=== PATIENT | female | born 1960 | race Caucasian/White ===

== ENCOUNTER 2023-08-09 09:42 | Observation (INO) | payer OTHER ==
--- OUTSIDE RECORDS SUMMARY | 2023-08-09 09:46 | XMS REPORT | Continuity of Care Document ---
Author Name Unknown Address [address] [place] [address] [address] [place] [address] [facility] Address [address] [facility]. [address] [place] [address] Care Team Providers Care Voice Over Announcer Name Role Phone CAMILO NUÑEZ Attending Clinician Unavailab FATOU Guardado Attending Clinician Unavailable LAB90 Attending Clinician Unavailable CHIDI OH Attending Clinician Unavailable RYAN CASEY Attending Clinician Unavailable Pillai_A_HOU_DO Attending Clinician Unavailable Zina Tate Attending Clinician Unavailable ZINA TATE D.O. 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 87 ON 9 [id number] 2023 00:00:00 [place] (EPO[place] [id number] 2021 00:00:00 2023 00:00:00 [facility] COMMUNITY PLAN (MEDICAID REPLACEMENT - HMO) [id number] 2021 00:00:00 [facility] BCBS BLUE ADVANTAGE HMO [id number] 2015 00:00:00 Problems Condition Name Condition Details Condition Category Status Onset Date Resolution Date Last Treatment Date Treating Clinician Comments Source HTN (hypertens ion) HTN (hypertens ion) Disease Active 2022-06 00:00: 00 Rosi smith Well adult exam Well adult exam Disease Active 2022-06 00:00: 00 Rosi smith HMG COA reductase inhibitor adverse reaction HMG COA Reductase Inhibitor Adverse Reaction Problem Active 11-25 00:00: 00 [facility] Postmenopa usal bleeding Postmenopa usal Bleeding Problem Active 2021-06 115 00:00: 00 [facility] Mild aortic valve stenosis Mild Aortic Valve Stenosis Problem Active 907 00:00: 00 [facility] Atheroscle rosis of aorta Atheroscle rosis of Aorta Problem Active 16 00:00: 00 [facility] Nodule of lung Nodule of Lung Problem Active 16 00:00: 00 [facility] Asbestosis Asbestosis Problem Active -12 00:00: 00 [facility] Chronic obstructiv e lung disease Chronic Obstructiv e Lung Disease Problem Active 11-26 00:00: 00 [facility] Essential hypertensi on Essential Hypertensi on Problem Active 11-24 00:00: 00 [facility] No known active problems No known active problems Disease [facility] Allergies, Adverse Reactions, Alerts Allergy Name Allergy Type Status Severity Reaction(s) Onset Date Inactive Date Treating Clinician Comments Source Atorvast atin Propensi ty to adverse reaction s Active Other 2022-06 00:00: 00 Rosi smith Atorvast atin Allergy to substanc e Active Myalgias (muscle pain) [facility] NO KNOWN ALLERGIE S Drug Class Active [facility] Social History Social Habit Start Date Stop Date Quantity Comments Source History of tobacco use 2012-10-30 00:00:00 Cigarette Smoker [facility] Exposure to SARS-CoV-2 (event) Not sure [facility] Sexual orientation Leida smiley Stephenie - External Tobacco use and exposure 2023-04-26 00:00:00 2023-04-26 00:00:00 Smokeless tobacco non-user Rosi Casiano - External Alcohol intake 2023-04-26 00:00:00 2023-04-26 00:00:00 Lifetime non-drinker (finding) Rosi Casiano - External History of Social function 2023-04-26 00:00:00 2023-04-26 00:00:00 Rosi Ramires External Tobacco Comment 2015-10-31 00:00:00 2015-10-31 00:00:00 use e cigarettes [facility] Alcohol Comment 2015-10-31 00:00:00 2015-10-31 00:00:00 ocassionally [facility] Sex Assigned At 1960 00:00:00 1960 00:00:00 Rosi Casiano - External Smoking Status Start Date Stop Date Source Former Smoker [facility] Never smoked tobacco Rosi Casiano - External Medications Ordered Medication Name Filled Medication Name Start Date Stop Date Current Medication? Ordering Clinician Indication Dosage Frequency Signature (SIG) Comments Components Source DHA-EPA-Vit smith E (OMEGA-3 COMPLEX OR) 2022-06 09:27: 37 Yes Take by mouth. Rosi smith Cholecalcif yonny (D3 2000 OR) 2022-06 09:27: 37 Yes Take by mouth. Rosi smith Multiple Vitamin (MULTI VITAMIN DAILY OR) 2022-06 09:27: 37 Yes Take by mouth. Rosi smith Multiple Vitamins-Mi nerals (HAIR SKIN AND NAILS FORMULA OR) 2022-06 09:27: 37 Yes Take by mouth. Rosi smith Coenzyme Q10 (Co Q10) 100 MG oral Capsule 2022-06 09:27: 37 Yes Take by mouth. Rosi smith Chlorthalid one 25 MG oral Tablet 2022-06 00:00: 00 Yes [id number] TAKE 1 TABLET BY MOUTH ONCE DAILY DIRECTED FOR 90 DAYS. Rosi smith Levothyroxi ne Sodium 150 MCG oral Tablet 2022-06 00:00: 00 Yes 150ug Take 1 tablet (150 mcg total) by mouth in the morning and 1 tablet (150 mcg total) at noon and 1 tablet (150 mcg total) in the evening. Take before meals. Rosi smith Oseltamivir Phosphate 75 MG oral Capsule 2022-06 00:00: 00 04-26 00:00 :00 No Rosi smith Pseudoeph-B romphen-DM 30-2-10 MG/5ML oral Syrup 2022-06 00:00: 00 04-26 00:00 :00 No TAKE 10 ML BY MOUTH EVERY 4 HOURS NEEDED FOR COUGH AND CONGESTION Rosi smith Losartan Potassium 25 MG oral Tablet 02-10 00:00: 00 Yes 25mg Take 1 tablet (25 mg total) by mouth daily. Rosi smith Chlorthalid one 25 MG oral Tablet 02-02 00:00: 00 04-26 00:00 :00 No TAKE 1 TABLET BY MOUTH ONCE DAILY DIRECTED FOR 90 DAYS Rosi smith iohexol (OMNIPAQUE 350 BULK-100 mL) injection 100 mL 01-26 19:15: 00 01-26 18:31 :00 No 100mL 100 mL, Intravenou s, ONCE, 1 dose, 01/27/20 at 1415, [facility] mg tablet 01-26 00:00: 00 02-06 04:59 :00 No [id number] 25mg Take 2.5 tablets by mouth 2 (two) times daily for 10 days. [facility] valACYclovi r 1 gram tablet 01-26 00:00: 00 02-06 04:59 :00 No [id number] 1g Take 1 tablet by mouth 3 (three) times daily for 10 days. [facility] COPASIL Gel 11-12 00:00: 00 Yes [facility] estradiol (ESTRACE) 0.01 % (0.1 mg/gram) vaginal cream 10-30 00:00: 00 Yes 2g Insert 2 g into vagina weekly. [facility] Diclofenac Sodium (VOLTAREN) 1 % gel 10-29 00:00: 00 Yes Apply to affected area(s) daily. [facility] doxycycline (VIBRA-TABS ) 100 mg tablet 10-28 00:00: 00 Yes 100mg Take 100 mg by mouth 2 (two) times daily. [facility] clindamycin (CLEOCIN T) 1 % lotion 10-28 00:00: 00 Yes Apply to affected area(s) daily. [facility] albuterol sulfate HFA 90 mcg/actuati on aerosol inhaler 1 puff every 4-6 hours as needed for SOB, wheezing, Cough albuterol sulfate HFA 90 mcg/actuati on aerosol inhaler 1 puff every 4-6 hours as needed for SOB, wheezing, Cough No albuterol sulfate HFA 90 mcg/actuat ion aerosol inhaler 1 puff every 4-6 hours as needed for SOB, wheezing, Cough [facility] aspirin 81 mg tablet,lisa yed release Take 1 tablet every day by oral route. aspirin 81 mg tablet,lisa yed release Take 1 tablet every day by oral route. No aspirin 81 mg tablet,del ayed release Take 1 tablet every day by oral route. [facility] atorvastati n 20 mg tablet Take 1 tablet every day by oral route. atorvastati n 20 mg tablet Take 1 tablet every day by oral route. No atorvastat in 20 mg tablet Take 1 tablet every day by oral route. [facility] chlorthalid one 25 mg tablet Take 1 tablet every day by oral route. chlorthalid one 25 mg tablet Take 1 tablet every day by oral route. No chlorthali done 25 mg tablet Take 1 tablet every day by oral route. [facility] losartan 25 mg tablet Take 1 tablet every day by oral route. losartan 25 mg tablet Take 1 tablet every day by oral route. No losartan 25 mg tablet Take 1 tablet every day by oral route. [facility] albuterol sulfate HFA 90 mcg/actuati on aerosol inhaler 1 puff every 4-6 hours as needed for SOB, wheezing, Cough albuterol sulfate HFA 90 mcg/actuati on aerosol inhaler 1 puff every 4-6 hours as needed for SOB, wheezing, Cough No albuterol sulfate HFA 90 mcg/actuat ion aerosol inhaler 1 puff every 4-6 hours as needed for SOB, wheezing, Cough [facility] chlorthalid one 25 mg tablet Take 1 tablet every day by oral route. chlorthalid one 25 mg tablet Take 1 tablet every day by oral route. No chlorthali done 25 mg tablet Take 1 tablet every day by oral route. [facility] losartan 25 mg tablet TAKE 1 TABLET BY MOUTH ONCE DAILY losartan 25 mg tablet TAKE 1 TABLET BY MOUTH ONCE DAILY No losartan 25 mg tablet TAKE 1 TABLET BY MOUTH ONCE DAILY [facility] Ozempic 0.25 mg or 0.5 mg (2 mg/1.5 mL) subcutaneou s pen injector Inject 0.5 mg every week by subcutaneou s route before meals for 90 days. Ozempic 0.25 mg or 0.5 mg (2 mg/1.5 mL) subcutaneou s pen injector Inject 0.5 mg every week by subcutaneou s route before meals for 90 days. No .5mg Q1W Ozempic 0.25 mg or 0.5 mg (2 mg/1.5 mL) subcutaneo us pen injector Inject 0.5 mg every week by subcutaneo us route before meals for 90 days. [facility] albuterol sulfate HFA 90 mcg/actuati on aerosol inhaler 1 puff every 4-6 hours as needed for SOB, wheezing, Cough albuterol sulfate HFA 90 mcg/actuati on aerosol inhaler 1 puff every 4-6 hours as needed for SOB, wheezing, Cough No albuterol sulfate HFA 90 mcg/actuat ion aerosol inhaler 1 puff every 4-6 hours as needed for SOB, wheezing, Cough [facility] chlorthalid one 25 mg tablet Take 1 tablet every day by oral route. chlorthalid one 25 mg tablet Take 1 tablet every day by oral route. No chlorthali done 25 mg tablet Take 1 tablet every day by oral route. [facility] losartan 25 mg tablet TAKE 1 TABLET BY MOUTH ONCE DAILY losartan 25 mg tablet TAKE 1 TABLET BY MOUTH ONCE DAILY No losartan 25 mg tablet TAKE 1 TABLET BY MOUTH ONCE DAILY [facility] Ozempic 0.25 mg or 0.5 mg (2 mg/1.5 mL) subcutaneou s pen injector Inject 0.5 mg every week by subcutaneou s route before meals for 90 days. Ozempic 0.25 mg or 0.5 mg (2 mg/1.5 mL) subcutaneou s pen injector Inject 0.5 mg every week by subcutaneou s route before meals for 90 days. No Ozempic 0.25 mg or 0.5 mg (2 mg/1.5 mL) subcutaneo us pen injector Inject 0.5 mg every week by subcutaneo us route before meals for 90 days. [facility] albuterol sulfate HFA 90 mcg/actuati on aerosol inhaler 1 puff every 4-6 hours as needed for SOB, wheezing, Cough albuterol sulfate HFA 90 mcg/actuati on aerosol inhaler 1 puff every 4-6 hours as needed for SOB, wheezing, Cough No albuterol sulfate HFA 90 mcg/actuat ion aerosol inhaler 1 puff every 4-6 hours as needed for SOB, wheezing, Cough [facility] chlorthalid one 25 mg tablet Take 1 tablet every day by oral route. chlorthalid one 25 mg tablet Take 1 tablet every day by oral route. No chlorthali done 25 mg tablet Take 1 tablet every day by oral route. [facility] losartan 25 mg tablet TAKE 1 TABLET BY MOUTH ONCE DAILY losartan 25 mg tablet TAKE 1 TABLET BY MOUTH ONCE DAILY No losartan 25 mg tablet TAKE 1 TABLET BY MOUTH ONCE DAILY [facility] Ozempic 0.25 mg or 0.5 mg (2 mg/1.5 mL) subcutaneou s pen injector Inject 0.5 mg every week by subcutaneou s route before meals for 90 days. Ozempic 0.25 mg or 0.5 mg (2 mg/1.5 mL) subcutaneou s pen injector Inject 0.5 mg every week by subcutaneou s route before meals for 90 days. No Ozempic 0.25 mg or 0.5 mg (2 mg/1.5 mL) subcutaneo us pen injector Inject 0.5 mg every week by subcutaneo us route before meals for 90 days. [facility] atorvastati n 20 mg tablet atorvastati n 20 mg tablet No atorvastat in 20 mg tablet [facility] chlorthalid one 25 mg tablet Take 1 tablet every day by oral route. chlorthalid one 25 mg tablet Take 1 tablet every day by oral route. No 1 Q1D chlorthali done 25 mg tablet Take 1 tablet every day by oral route. [facility] losartan 25 mg tablet Take 1 tablet every day by oral route. losartan 25 mg tablet Take 1 tablet every day by oral route. No 1 Q1D losartan 25 mg tablet Take 1 tablet every day by oral route. [facility] Vitamin D3 2000 IU daily Vitamin D3 2000 IU daily No Vitamin D3 2000 IU daily [facility] amoxicillin 500 mg capsule TAKE 1 CAPSULE BY MOUTH THREE TIMES DAILY UNTIL ALL ARE TAKEN, TAKE WITH FOOD AND DRINK PLENTY OF WATER amoxicillin 500 mg capsule TAKE 1 CAPSULE BY MOUTH THREE TIMES DAILY UNTIL ALL ARE TAKEN, TAKE WITH FOOD AND DRINK PLENTY OF WATER No amoxicilli n 500 mg capsule TAKE 1 CAPSULE BY MOUTH THREE TIMES DAILY UNTIL ALL ARE TAKEN, TAKE WITH FOOD AND DRINK PLENTY OF WATER [facility] chlorthalid one 25 mg tablet TAKE 1 TABLET BY MOUTH ONCE DAILY chlorthalid one 25 mg tablet TAKE 1 TABLET BY MOUTH ONCE DAILY No chlorthali done 25 mg tablet TAKE 1 TABLET BY MOUTH ONCE DAILY [facility] levothyroxi ne 100 mcg tablet TAKE 1 TABLET BY MOUTH ONCE DAILY IN THE MORNING FOR 90 DAYS levothyroxi ne 100 mcg tablet TAKE 1 TABLET BY MOUTH ONCE DAILY IN THE MORNING FOR 90 DAYS No levothyrox ine 100 mcg tablet TAKE 1 TABLET BY MOUTH ONCE DAILY IN THE MORNING FOR 90 DAYS [facility] losartan 25 mg tablet TAKE 1 TABLET BY MOUTH ONCE DAILY losartan 25 mg tablet TAKE 1 TABLET BY MOUTH ONCE DAILY No losartan 25 mg tablet TAKE 1 TABLET BY MOUTH ONCE DAILY [facility] Vitamin D3 2000 IU daily Vitamin D3 2000 IU daily No Vitamin D3 2000 IU daily [facility] amoxicillin 500 mg capsule TAKE 1 CAPSULE BY MOUTH THREE TIMES DAILY UNTIL ALL ARE TAKEN, TAKE WITH FOOD AND DRINK PLENTY OF WATER amoxicillin 500 mg capsule TAKE 1 CAPSULE BY MOUTH THREE TIMES DAILY UNTIL ALL ARE TAKEN, TAKE WITH FOOD AND DRINK PLENTY OF WATER No amoxicilli n 500 mg capsule TAKE 1 CAPSULE BY MOUTH THREE TIMES DAILY UNTIL ALL ARE TAKEN, TAKE WITH FOOD AND DRINK PLENTY OF WATER [facility] chlorthalid one 25 mg tablet TAKE 1 TABLET BY MOUTH ONCE DAILY chlorthalid one 25 mg tablet TAKE 1 TABLET BY MOUTH ONCE DAILY No chlorthali done 25 mg tablet TAKE 1 TABLET BY MOUTH ONCE DAILY [facility] levothyroxi ne 100 mcg tablet TAKE 1 TABLET BY MOUTH ONCE DAILY IN THE MORNING FOR 90 DAYS levothyroxi ne 100 mcg tablet TAKE 1 TABLET BY MOUTH ONCE DAILY IN THE MORNING FOR 90 DAYS No levothyrox ine 100 mcg tablet TAKE 1 TABLET BY MOUTH ONCE DAILY IN THE MORNING FOR 90 DAYS [facility] losartan 25 mg tablet TAKE 1 TABLET BY MOUTH ONCE DAILY losartan 25 mg tablet TAKE 1 TABLET BY MOUTH ONCE DAILY No losartan 25 mg tablet TAKE 1 TABLET BY MOUTH ONCE DAILY [facility] Vitamin D3 2000 IU daily Vitamin D3 2000 IU daily No Vitamin D3 2000 IU daily [facility] Immunizations Ordered Immunization Name Filled Immunization Name Date Status Comments Source zoster recombinant zoster recombinant 2021-12-15 14:25:00 Completed [facility] zoster recombinant zoster recombinant 2021-12-15 14:25:00 Completed [facility] zoster recombinant zoster recombinant 2021-12-15 14:25:00 Completed [facility] zoster recombinant zoster recombinant 2021-12-15 14:25:00 Completed [facility] zoster recombinant zoster recombinant 2021-12-15 14:25:00 Completed [facility] zoster recombinant zoster recombinant 2021-12-15 14:25:00 Completed [facility] zoster recombinant zoster recombinant 2021-12-15 14:25:00 Completed [facility] Pneumococcal conjugate PCV20, polysaccharide [id number] conjugate, adjuvant, PF Pneumococcal conjugate PCV20, polysaccharide [id number] conjugate, adjuvant, PF 2021-11-24 13:03:09 Completed [facility] Pneumococcal conjugate PCV20, polysaccharide [id number] conjugate, adjuvant, PF Pneumococcal conjugate PCV20, polysaccharide [id number] conjugate, adjuvant, PF 2021-11-24 13:03:09 Completed [facility] Pneumococcal conjugate PCV20, polysaccharide [id number] conjugate, adjuvant, PF Pneumococcal conjugate PCV20, polysaccharide [id number] conjugate, adjuvant, PF 2021-11-24 13:03:09 Completed [facility] Pneumococcal conjugate PCV20, polysaccharide [id number] conjugate, adjuvant, PF Pneumococcal conjugate PCV20, polysaccharide [id number] conjugate, adjuvant, PF 2021-11-24 13:03:09 Completed [facility] Pneumococcal conjugate PCV20, polysaccharide [id number] conjugate, adjuvant, PF Pneumococcal conjugate PCV20, polysaccharide [id number] conjugate, adjuvant, PF 2021-11-24 13:03:09 Completed [facility] Pneumococcal conjugate PCV20, polysaccharide [id number] conjugate, adjuvant, PF Pneumococcal conjugate PCV20, polysaccharide [id number] conjugate, adjuvant, PF 2021-11-24 13:03:09 Completed [facility] Pneumococcal conjugate PCV20, polysaccharide [id number] conjugate, adjuvant, PF Pneumococcal conjugate PCV20, polysaccharide [id number] conjugate, adjuvant, PF 2021-11-24 13:03:09 Completed [facility] Tdap Tdap 2021-11-24 12:57:36 Completed [facility] Tdap Tdap 2021-11-24 12:57:36 Completed [facility] Tdap Tdap 2021-11-24 12:57:36 Completed [facility] Tdap Tdap 2021-11-24 12:57:36 Completed [facility] Tdap Tdap 2021-11-24 12:57:36 Completed [facility] Tdap Tdap 2021-11-24 12:57:36 Completed [facility] Tdap Tdap 2021-11-24 12:57:36 Completed [facility] influenza, injectable, quadrivalent influenza, injectable, quadrivalent 2021-07-07 00:00:00 Completed [facility] influenza, injectable, quadrivalent influenza, injectable, quadrivalent 2021-07-07 00:00:00 Completed [facility] influenza, injectable, quadrivalent influenza, injectable, quadrivalent 2021-07-07 00:00:00 Completed [facility] influenza, injectable, quadrivalent influenza, injectable, quadrivalent 2021-07-07 00:00:00 Completed [facility] influenza, injectable, quadrivalent influenza, injectable, quadrivalent 2021-07-07 00:00:00 Completed [facility] influenza, injectable, quadrivalent influenza, injectable, quadrivalent 2021-07-07 00:00:00 Completed [facility] influenza, injectable, quadrivalent influenza, injectable, quadrivalent 2021-07-07 00:00:00 Completed [facility] COVID-19, mRNA, LNP-S, PF, 100 mcg/0.5 mL dose (Moderna) COVID-19, mRNA, LNP-S, PF, 100 mcg/0.5 mL dose (Moderna) 2021-06-11 00:00:00 Completed [facility] COVID-19, mRNA, LNP-S, PF, 100 mcg/0.5 mL dose (Moderna) COVID-19, mRNA, LNP-S, PF, 100 mcg/0.5 mL dose (Moderna) 2021-06-11 00:00:00 Completed [facility] COVID-19, mRNA, LNP-S, PF, 100 mcg/0.5 mL dose (Moderna) COVID-19, mRNA, LNP-S, PF, 100 mcg/0.5 mL dose (Moderna) 2021-06-11 00:00:00 Completed [facility] COVID-19, mRNA, LNP-S, PF, 100 mcg/0.5 mL dose (Moderna) COVID-19, mRNA, LNP-S, PF, 100 mcg/0.5 mL dose (Moderna) 2021-06-11 00:00:00 Completed [facility] COVID-19, mRNA, LNP-S, PF, 100 mcg/0.5 mL dose (Moderna) COVID-19, mRNA, LNP-S, PF, 100 mcg/0.5 mL dose (Moderna) 2021-06-11 00:00:00 Completed [facility] COVID-19, mRNA, LNP-S, PF, 100 mcg/0.5 mL dose (Moderna) COVID-19, mRNA, LNP-S, PF, 100 mcg/0.5 mL dose (Moderna) 2021-06-11 00:00:00 Completed [facility] COVID-19, mRNA, LNP-S, PF, 100 mcg/0.5 mL dose (Moderna) COVID-19, mRNA, LNP-S, PF, 100 mcg/0.5 mL dose (Moderna) 2021-06-11 00:00:00 Completed [facility] COVID-19, mRNA, LNP-S, PF, 100 mcg/0.5 mL dose (Moderna) COVID-19, mRNA, LNP-S, PF, 100 mcg/0.5 mL dose (Moderna) 2020-10-13 00:00:00 Completed [facility] COVID-19, mRNA, LNP-S, PF, 100 mcg/0.5 mL dose (Moderna) COVID-19, mRNA, LNP-S, PF, 100 mcg/0.5 mL dose (Moderna) 2020-10-13 00:00:00 Completed [facility] COVID-19, mRNA, LNP-S, PF, 100 mcg/0.5 mL dose (Moderna) - ML COVID-19, mRNA, LNP-S, PF, 100 mcg/0.5 mL dose (Moderna) - ML 2020-10-13 00:00:00 Completed [facility] COVID-19, mRNA, LNP-S, PF, 100 mcg/0.5 mL dose (Moderna) - ML COVID-19, mRNA, LNP-S, PF, 100 mcg/0.5 mL dose (Moderna) - ML 2020-10-13 00:00:00 Completed [facility] COVID-19, mRNA, LNP-S, PF, 100 mcg/0.5 mL dose (Moderna) - ML COVID-19, mRNA, LNP-S, PF, 100 mcg/0.5 mL dose (Moderna) - ML 2020-10-13 00:00:00 Completed [facility] COVID-19, mRNA, LNP-S, PF, 100 mcg/0.5 mL dose (Moderna) - ML COVID-19, mRNA, LNP-S, PF, 100 mcg/0.5 mL dose (Moderna) - ML 2020-10-13 00:00:00 Completed [facility] COVID-19, mRNA, LNP-S, PF, 100 mcg/0.5 mL dose (Moderna) - ML COVID-19, mRNA, LNP-S, PF, 100 mcg/0.5 mL dose (Moderna) - 2020-10-13 00:00:00 Completed [facility] COVID-19, mRNA, LNP-S, PF, 100 mcg/0.5 mL dose (Moderna) COVID-19, mRNA, LNP-S, PF, 100 mcg/0.5 mL dose (Moderna) 2020-09-16 00:00:00 Completed [facility] COVID-19, mRNA, LNP-S, PF, 100 mcg/0.5 mL dose (Moderna) COVID-19, mRNA, LNP-S, PF, 100 mcg/0.5 mL dose (Moderna) 2020-09-16 00:00:00 Completed [facility] COVID-19, mRNA, LNP-S, PF, 100 mcg/0.5 mL dose (Moderna) - ML COVID-19, mRNA, LNP-S, PF, 100 mcg/0.5 mL dose (Moderna) - 2020-09-16 00:00:00 Completed [facility] COVID-19, mRNA, LNP-S, PF, 100 mcg/0.5 mL dose (Moderna) - ML COVID-19, mRNA, LNP-S, PF, 100 mcg/0.5 mL dose (Moderna) - 2020-09-16 00:00:00 Completed [facility] COVID-19, mRNA, LNP-S, PF, 100 mcg/0.5 mL dose (Moderna) - COVID-19, mRNA, LNP-S, PF, 100 mcg/0.5 mL dose (Moderna) - ML 2020-09-16 00:00:00 Completed [facility] COVID-19, mRNA, LNP-S, PF, 100 mcg/0.5 mL dose (Moderna) - COVID-19, mRNA, LNP-S, PF, 100 mcg/0.5 mL dose (Moderna) - ML 2020-09-16 00:00:00 Completed [facility] COVID-19, mRNA, LNP-S, PF, 100 mcg/0.5 mL dose (Moderna) - ML COVID-19, mRNA, LNP-S, PF, 100 mcg/0.5 mL dose (Moderna) - ML 2020-09-16 00:00:00 Completed [facility] COVID-19, mRNA, LNP-S, PF, 100 mcg/0.5 mL dose (Moderna) COVID-19, mRNA, LNP-S, PF, 100 mcg/0.5 mL dose (Moderna) 2020-06-11 00:00:00 Completed [facility] COVID-19, mRNA, LNP-S, PF, 100 mcg/0.5 mL dose (Moderna) COVID-19, mRNA, LNP-S, PF, 100 mcg/0.5 mL dose (Moderna) 2020-06-11 00:00:00 Completed [facility] COVID-19, mRNA, LNP-S, PF, 100 mcg/0.5 mL dose (Moderna) COVID-19, mRNA, LNP-S, PF, 100 mcg/0.5 mL dose (Moderna) 2020-06-11 00:00:00 Completed [facility] COVID-19, mRNA, LNP-S, PF, 100 mcg/0.5 mL dose (Moderna) COVID-19, mRNA, LNP-S, PF, 100 mcg/0.5 mL dose (Moderna) 2020-06-11 00:00:00 Completed [facility] COVID-19, mRNA, LNP-S, PF, 100 mcg/0.5 mL dose (Moderna) COVID-19, mRNA, LNP-S, PF, 100 mcg/0.5 mL dose (Moderna) 2020-06-11 00:00:00 Completed [facility] Shingles SQ (Zostavax) Unknown Completed Rosi Casiano - External Vital Signs Vital Name Observation Time Observation Value Comments S ource Systolic blood pressure 2023-04-26 15:17:00 128 mm[Hg] Rosi Teixeira ld - External Diastolic blood pressure 2023-04-26 15:17:00 60 mm[Hg] Rosi aguirre - External Heart rate 2023-04-26 15:17:00 68 /min Gwendolyn Casiano - External Respiratory rate 2023-04-26 15:17:00 18 /min Rosi Casiano - External Body height 2023-04-26 15:17:00 167.6 cm Shanae Casiano - External Body weight 2023-04-26 15:17:00 109.77 kg Shanae ey Seybold - External BMI 2023-04-26 15:17:00 39.06 kg/m2 Shanae mcdonald Seybold - External Oxygen saturation in Arterial blood by Pulse oximetry 2023-04-26 15:17:00 98 /min Rosi Sefrances ld - External BP Diastolic 2022-11-25 00:00:00 78 mm[Hg] [facility] Height 2022-11-25 00:00:00 67 [in_i] [facility] BMI (Body Mass Index) 2022-11-25 00:00:00 38.3 kg/m2 [facility] BP Systolic 2022-11-25 00:00:00 113 mm[Hg] [facility] Body Weight 2022-11-25 00:00:00 244.6 [lb_av] [facility] BP Diastolic 2022-08-25 00:00:00 85 mm[Hg] [facility] Height 2022-08-25 00:00:00 67 [in_i] [facility] BMI (Body Mass Index) 2022-08-25 00:00:00 39.9 kg/m2 [facility] BP Systolic 2022-08-25 00:00:00 123 mm[Hg] [facility] Body Weight 2022-08-25 00:00:00 255 [lb_av] [facility] BP Diastolic 2022-05-19 00:00:00 83 mm[Hg] [facility] Height 2022-05-19 00:00:00 66.5 [in_i] [facility] BMI (Body Mass Index) 2022-05-19 00:00:00 39.1 kg/m2 [facility] BP Systolic 2022-05-19 00:00:00 121 mm[Hg] [facility] Body Weight 2022-05-19 00:00:00 246 [lb_av] [facility] BP Diastolic 2022-04-20 00:00:00 88 mm[Hg] [facility] Height 2022-04-20 00:00:00 65 [in_i] [facility] BMI (Body Mass Index) 2022-04-20 00:00:00 41.5 kg/m2 [facility] BP Systolic 2022-04-20 00:00:00 128 mm[Hg] [facility] Body Weight 2022-04-20 00:00:00 249.2 [lb_av] [facility] BP Diastolic 2022-02-10 00:00:00 76 mm[Hg] [facility] Height 2022-02-10 00:00:00 67 [in_i] [facility] BMI (Body Mass Index) 2022-02-10 00:00:00 38.4 kg/m2 [facility] BP Systolic 2022-02-10 00:00:00 109 mm[Hg] [facility] Body Weight 2022-02-10 00:00:00 245 [lb_av] [facility] BP Diastolic 2022-01-13 00:00:00 84 mm[Hg] [facility] Height 2022-01-13 00:00:00 67 [in_i] [facility] BMI (Body Mass Index) 2022-01-13 00:00:00 38.4 kg/m2 [facility] BP Systolic 2022-01-13 00:00:00 127 mm[Hg] [facility] Body Weight 2022-01-13 00:00:00 245 [lb_av] [facility] BP Diastolic 2022-01-06 00:00:00 83 mm[Hg] [facility] Height 2022-01-06 00:00:00 65 [in_i] [facility] BMI (Body Mass Index) 2022-01-06 00:00:00 41.1 kg/m2 [facility] BP Systolic 2022-01-06 00:00:00 128 mm[Hg] [facility] Body Weight 2022-01-06 00:00:00 247 [lb_av] [facility] Height 2021-12-15 00:00:00 65 [in_i] [facility] BMI (Body Mass Index) 2021-12-15 00:00:00 39.9 kg/m2 [facility] BP Systolic 2021-12-15 00:00:00 137 mm[Hg] [facility] Body Weight 2021-12-15 00:00:00 240 [lb_av] [facility] BP Diastolic 2021-12-15 00:00:00 80 mm[Hg] [facility] BP Diastolic 2021-11-24 00:00:00 84 mm[Hg] Sheila [facility] Height 2021-11-24 00:00:00 65 [in_i] [facility] BMI (Body Mass Index) 2021-11-24 00:00:00 39.6 kg/m2 [facility] BP Systolic 2021-11-24 00:00:00 126 mm[Hg] [facility] Body Weight 2021-11-24 00:00:00 237.8 [lb_av] [facility] Systolic blood pressure 2020-01-27 20:00:00 133 mm[Hg] [facility] Diastolic blood pressure 2020-01-27 20:00:00 99 mm[Hg] [facility] Heart rate 2020-01-27 20:00:00 80 /min [facility] Respiratory rate 2020-01-27 20:00:00 19 /min [facility] Oxygen saturation in Arterial blood by Pulse oximetry 2020-01-27 20:00:00 99 /min [facility] Body temperature 2020-01-27 17:30:00 37.06 Molly [facility] Body weight 2020-01-27 17:30:00 106.595 kg [facility] BMI 2020-01-27 17:30:00 37.93 kg/m2 [facility] Procedures Procedure Date / Time Performed Performing Clinician Source X-RAY CERVICAL SPINE 2 OR 3 VIEW 2022-11-25 00:00:00 [facility] MAMMO, screening, tomosynthesis, bilateral, w/ CAD 2022-08-25 00:00:[address] [facility] [address], chest, w/o contrast 2022-08-25 00:00:00 [facility] LDCT, chest, for lung cancer screening 2022-01-18 00:00:00 [facility] MAMMO, screening, digital, bilateral 2021-12-16 00:00:00 [facility] DEXA, axial skeleton 2021-12-16 00:00:00 [facility] MAMMO, screening, tomosynthesis, bilateral, w/ CAD 2021-12-15 00:00:00 [facility] EVALUATION OF WHEEZING 2021-11-25 00:00:00 [facility] LDCT, chest, for lung cancer screening 2021-11-24 00:00:00 [facility] electrocardiogram 2021-11-24 00:00:00 [facility] US, echocardiogram, transthoracic, complete, w/ color flow 2021-11-24 00:00:00 [facility] CT ANGIOGRAM HEAD 2020-01-27 18:58:59 Popeye Alcala [facility] CT ANGIOGRAM NECK 2020-01-27 18:58:59 Popeye Alcala [facility] CT HEAD WO CONTRAST 2020-01-27 18:38:35 Jo Ann Alcala [facility] EKG-12 LEAD 2020-01-27 17:49:17 Popeye Alcaal [facility] COMP. METABOLIC PANEL (30893) 2020-01-27 17:38:00 Popeye Alcala [facility] CBC WITH DIFF 2020-01-27 17:38:00 Popeye Alcala [facility] Cholecystectomy [facility] Plan of Care Planned Activity Planned Date Details Comments Source Diagnostic Test Pending 2022-11-25 00:00:00 CK (creatine kinase), total, serum [code = CK (creatine kinase), total, serum] [facility] Diagnostic Test Pending 2022-11-25 00:00:00 CMP, serum or plasma [code = CMP, serum or plasma] [facility] Diagnostic Test Pending 2022-11-25 00:00:00 TSH, serum, reflex free T4 [code = TSH, serum, reflex free T4] [facility] Diagnostic Test Pending 2022-11-25 00:00:00 vitamin D, 25-hydroxy, total, serum [code = vitamin D, 25-hydroxy, total, serum] [facility] Diagnostic Test Pending 2022-11-25 00:00:00 vitamin B12 + folate, serum or blood [code = vitamin B12 + folate, serum or blood] [facility] Diagnostic Test Pending 2022-11-25 00:00:00 HbA1c (hemoglobin A1c), blood [code = HbA1c (hemoglobin A1c), blood] [facility] Diagnostic Test Pending 2022-11-25 00:00:00 lipid panel, serum [code = lipid panel, serum] [facility] Encounters Start Date/Time End Date/Time Encounter Type Admission Type Attending [facility] Care Facility Care Department Encounter ID Source 2023-01-05 10:56:04 Outpatient [facility] [id number] [facility] 2023-08-09 00:00:00 2023-08-09 00:00:00 Outpatient CAMILO NUÑEZ [id number] Rosi [facility] 2023-08-03 00:00:00 2023-08-03 00:00:00 Outpatient UMA FATOU ZEE [id number] Rosi [facility] 2023-08-02 11:15:00 2023-08-02 11:15:00 Outpatient [facility]AR [facility]EE [id number] [facility]23-07-27 00:00:00 2023-07-27 00:00:00 Outpatient FATOU EATON [id number] [facility] 2023-07-27 00:00:00 2023-07-27 00:00:00 Outpatient DOMIBETHDanny FATOU ZEE [id number] Rosi [facility] 2023-07-27 00:00:00 2023-07-27 00:00:00 Outpatient DOMIBETHDanny FATOU ZEE [id number] [facility] 2023-07-26 00:00:00 2023-07-26 00:00:00 Outpatient FATOU EATON [id number] [facility] 2023-07-22 11:15:00 2023-07-22 11:15:00 Outpatient ROSI ZEE [id number] Rosi [facility] 2023-06-27 00:00:00 2023-06-27 00:00:00 Outpatient CAMILO NUÑEZ [id number] [facility] 2023-06-13 15:10:00 2023-06-13 15:10:00 Outpatient ROSI ZEE [id number] [facility] 2023-06-13 00:00:00 2023-06-13 00:00:00 Outpatient CAMILO NU[facility]EZ [id number] [facility] 2023-06-10 08:30:00 2023-06-10 08:30:00 Outpatient CHIDI OH ROSI ZEE [id number] Rosi [facility] 2023-06-07 15:00:00 2023-06-07 15:00:00 Outpatient ROSI ZEE [id number] [facility] 2023-05-27 00:00:00 2023-05-27 00:00:00 Outpatient CAMILO NUÑEZ ROSI ZEE [id number] [facility] 2023-05-06 00:00:00 2023-05-06 00:00:00 Outpatient SAVANNAH CAMILO ZEE [id number] [facility] 2023-05-04 00:00:00 2023-05-04 00:00:00 Outpatient JIMMY NUÑEZTHIA ROSI ZEE [id number] [facility] 2023-04-29 00:00:00 2023-04-29 00:00:00 Outpatient FATOU EATON ROSI ZEE [id number] [facility] 2023-04-29 00:00:00 2023-04-29 00:00:00 Outpatient CAMILO NUÑEZ ROSI ZEE [id number] [facility] 2023-04-29 00:00:00 2023-04-29 00:00:00 Outpatient JACINTORYAN ZAMUDIO ROSI ZEE [id number] [facility] 2023-04-27 00:00:00 2023-04-27 00:00:00 Outpatient CAMILO NUÑEZ ROSI ZEE [id number] [facility] 2023-04-26 10:15:00 2023-04-26 10:15:00 Outpatient LAB90 ROSI ZEE [id number] [facility] 2023-04-26 09:30:00 2023-04-26 09:30:00 Outpatient CAMILO NUÑEZ ROSI ZEE [id number] Rosi [facility] 2023-03-07 00:00:00 2023-03-07 00:00:00 Outpatient Pillai_A_HO U_DO VFP VFP [id number] [facility] 2023-02-23 00:00:00 2023-02-23 00:00:00 Outpatient Pillai_A_HO U_DO VFP VFP [id number] [facility] 2023-01-31 00:00:00 2023-01-31 00:00:00 Outpatient Pillai_A_HO U_DO VFP VFP [id number] [facility] 2022-12-27 00:00:00 2022-12-27 00:00:00 Outpatient Pillai_A_HO U_DO VFP VFP [id number] [facility] 2022-11-25 10:50:00 2022-11-25 10:50:00 Outpatient Zina Hinkle [facility] RADI [id number] [facility] 2022-11-25 00:00:00 2022-11-25 00:00:00 Zina Tate, DO: [address] [facility], [address], [place] [address] , Ph. VFP [place] - [facility] [place] VM_HOU_[place] [id number] [facility] 2022-11-22 00:00:00 2022-11-22 00:00:00 Outpatient Pillai_A VFP VFP [id number] [facility] 2022-11-22 00:00:00 2022-11-22 00:00:00 Outpatient Pillai_A VFP VFP [id number] [facility] 2022-09-13 14:06:00 2022-09-13 14:06:00 Outpatient Zina Hinkle [facility] [id number] [facility] 2022-09-01 00:00:00 2022-09-01 00:00:00 Outpatient Pillai_A VFP VFP [id number] [facility] 2022-08-25 00:00:00 2022-08-25 00:00:00 Outpatient Pillai_A VFP VFP [id number] [facility] 2022-08-25 00:00:00 2022-08-25 00:00:00 Zina Tate, DO: [id number], [address], [place] [address] , Ph. VFP [place] [facility] [place] - VM_EMILYU_[place] [id number] [facility] 2022-08-22 00:00:00 2022-08-22 00:00:00 Outpatient Pillai_A VFP VFP [id number] [facility] 2022-08-22 00:00:00 2022-08-22 00:00:00 Outpatient Pillai_A VFP VFP [id number] [facility] 2022-07-23 00:00:00 2022-07-23 00:00:00 Outpatient Pillai_A VFP VFP [id number] [facility] 2022-06-30 00:00:00 2022-06-30 00:00:00 Outpatient Pillai_A VFP VFP [id number] [facility] 2022-06-18 00:00:00 2022-06-18 00:00:00 Outpatient Pillai_A VFP VFP [id number] [facility] 2022-05-19 00:00:00 2022-05-19 00:00:00 Outpatient Pillai_A VFP VFP [id number] [facility] 2022-05-19 00:00:00 2022-05-19 00:00:00 Zina Tate, DO: [address], [address], [place] [address] , Ph. VFP [place] [facility] [place] [id number] [facility] 2022-05-14 00:00:00 2022-05-14 00:00:00 Outpatient Pillai_A VFP VFP [id number] [facility] 2022-04-20 00:00:00 2022-04-20 00:00:00 Outpatient Pillai_A VFP VFP [id number] [facility] 2022-04-20 00:00:00 2022-04-20 00:00:00 Zina Tate, DO: [address], [address], [place] [address] , Ph. VFP [place] [facility] [place] VM_HOU_[place] [id number] [facility] 2022-04-09 00:00:00 2022-04-09 00:00:00 Outpatient Pillai_A VFP VFP [id number] [facility] 2022-02-10 00:00:00 2022-02-10 00:00:00 Outpatient Pillai_A VFP VFP [id number] [facility] 2022-02-10 00:00:00 2022-02-10 00:00:00 Zina Tate, DO: [address], [address], [place] [address] , Ph. VFP [place] - [facility] - VM_HOU_[place] [id number] [facility] 2022-02-09 00:00:00 2022-02-09 00:00:00 Outpatient Pillai_A VFP VFP [id number] [facility] 2022-01-19 09:45:00 2022-01-19 09:45:00 Outpatient Zina Hinkle [facility] [id number] [facility] 2022-01-15 00:00:00 2022-01-15 00:00:00 Outpatient Pillai_A VFP VFP [id number] [facility] 2022-01-13 00:00:00 2022-01-13 00:00:00 Outpatient Pillai_A VFP VFP [id number] [facility] 2022-01-13 00:00:00 2022-01-13 00:00:00 Zina Tate, DO: [address], [address], [place] [address] , Ph. VFP [place] - [facility] - VM_EMILYU_[place] [id number] [facility] 2022-01-12 10:00:00 2022-01-12 10:00:00 Outpatient ZINA TATE [facility]AR [id number] [facility] 2022-01-12 09:18:00 2022-01-12 09:18:00 Outpatient EL ClaudyZina bradley [facility] [id number] [facility] 2022-01-12 09:18:00 2022-01-12 09:18:00 Outpatient EL Zina Tate [facility] [id number] [facility] 2022-01-12 00:00:00 2022-01-12 00:00:00 Outpatient Pillai_A VFP VFP [id number] [facility] 2022-01-06 00:00:00 2022-01-06 00:00:00 Outpatient Pillai_A VFP VFP [id number] [facility] 2022-01-06 00:00:00 2022-01-06 00:00:00 JUDY Elena [id number] [facility] [address] [facility], [address], [place] [address] , Ph. VFP [place] - [facility] - VM_EMILYU_[place] [id number] [facility] 2021-12-23 00:00:00 2021-12-23 00:00:00 Outpatient Pillai_A VFP VFP [id number] [facility] 2021-12-15 02:27:00 2021-12-15 02:27:00 Outpatient Pillai_A VFP VFP [id number] [facility] 2021-12-15 02:27:00 2021-12-15 02:27:00 Outpatient Pillai_A VFP VFP [id number] [facility] 2021-12-15 00:00:00 2021-12-15 00:00:00 Zina Tate DO: [address], [address] [address] , Ph. VFP [place] - [facility] - VM_HOU_[place] [id number] [facility] 2021-12-11 05:18:00 2021-12-11 05:18:00 Outpatient Pillai_A VFP VFP [id number] [facility] 2021-11-26 12:16:00 2021-11-26 12:16:00 Outpatient Pillai_A VFP VFP [id number] [facility] 2021-11-25 01:57:00 2021-11-25 01:57:00 Outpatient Pillai_A VFP VFP [id number] [facility] 2021-11-25 00:00:00 2021-11-25 00:00:00 Zina Tate, DO: [address], [address], [place] [address] , Ph. VFP [place] - [facility] - VM_HOU_[place] [id number] [facility] 2021-11-24 02:27:00 2021-11-24 02:27:00 Outpatient Pillai_A VFP VFP [id number] [facility] 2021-11-24 00:00:00 2021-11-24 00:00:00 Zina Tate, DO: [address], [address], [place] [address] , Ph. VFP [place] - [facility] - VM_HOU_[place] [id number] [facility] 2021-11-23 02:14:00 2021-11-23 02:14:00 Outpatient Pillai_A VFP VFP [id number] [facility] 2021-11-17 12:47:00 2021-11-17 12:47:00 Outpatient Pillai_A VFP VFP [id number] [facility] 2020-01-27 12:31:00 2020-01-27 15:57:00 Emergency Popeye Alcala [facility] [id number] [facility] 2020-01-27 12:31:00 2020-01-27 12:31:00 Emergency X POPEYE ALCALA [facility] ERT [id number] [facility] Results Test Description Test Time Test Comments Results Resul t Comments Source - XR C-SPINE 2-3 VIEWS 2022-11-25 11:38:00 [facility] 1960 Sex: F Name: COOPER CLAUDIO [facility] : 1960 Age/S: 62 / F [id number] [facility] [place] Unit #: [id number] Loc: [place] [address] Phys: Zina Tate DO Acct: [id number] Dis Date: Status: REG CLI PHONE #: [phone] Exam Date: 11/25/2022 1110 FAX #: Reason: PARESTHESIA OF HAND EXAMS: CPT: [id number] XR C-SPINE 2-3 VIEWS 77694 Fluoro Time: DAP (Gy m2): Air Kerma (mGy): CLINICAL INFORMATION: Paresthesias hand Dictation location: A 1 COMPARISON: No prior. Technique: Frontal, lateral, open mouth view. FINDINGS: There is straightening of the usual cervical lordosis with the vertebral body heights and interspaces maintained. Prevertebral space and odontoid intact. No fracture, dislocation, subluxation or destructive lesion. No radiopaque foreign body. IMPRESSION: Straightening of the usual cervical lordosis. Otherwise unremarkable. at 1138 Reported and signed by: Leander Harrison M.D. CC: Zina Tate DO PAGE 1 Signed Report Name: COOPER CLAUDIO [facility] : 1960 Age/S: 62 / F [id number] Unit #: [id number] Loc: [place] [address] Phys: Zina Tate DO Acct: [id number] Dis Date: Status: REG CLI PHONE #: [phone] Exam Date: 11/25/2022 1110 FAX #: Reason: PARESTHESIA OF HAND EXAMS: CPT: [id number] XR C-SPINE 2-3 VIEWS 68783 Fluoro Time: DAP (Gy m2): Air Kerma (mGy): (Continued) Technologist: BREANA LARSON Trnnjb Date/Time: 11/25/2022 (1138) [email or web address] Orig Print D/T: S: 11/25/2022 (1141) PAGE 2 Signed Report - CT CHEST W/O CONTRAST 2022-09-13 15:18:00 [facility] 1960 Sex: F Name: COOPER CLAUDIO [facility] : 1960 Age/S: 61 / F [id number] Unit #: [id number] Loc: [place] [address] Phys: Zina Tate DO Acct: [id number] Dis Date: Status: REG CLI PHONE #: [phone] Exam Date: 09/13/2022 144 FAX #: Reason: SOLITARY PULMONARY NODULE EXAMS: CPT: [id number] CT CHEST W/O CONTRAST 474[address] Location Code: S17 EXAMINATION: - CT CHEST W/O CONTRAST CLINICAL INDICATION: Female, 61 years old with SOLITARY PULMONARY NODULE TECHNIQUE: Multiple contiguous axial CT images of the chest were obtained without the administration of intravenous contrast. Sagittal and coronal reconstructions were performed. One or more of the following dose reduction techniques were used: Automated exposure control, adjustment of the mA and/or kV according to patient size, and/or iterative reconstruction. COMPARISON: CT chest January 19, 2022. FINDINGS: Chest: Medical Devices: None. Lymph Nodes: There are no pathologically enlarged supraclavicular, mediastinal, or axillary lymph nodes. Lungs/Airways/Pleura: Trachea and main bronchi are patent. No evidence of focal consolidation, pleural effusion, or pneumothorax. Stable 3 mm noncalcified nodule in the right middle lobe (series 3 image 33). Stable probable focal scarring in the right upper lobe. Heart/Vessels: Heart is normal in size. Coronary artery calcifications are present. No pericardial effusion is present. Normal caliber thoracic aorta. Calcific plaque is present within the thoracic aorta. Central pulmonary arteries are normal in size. Soft Tissues: Visualized thyroid gland is normal. The esophagus is normal. No soft tissue abnormality of the chest is demonstrated. Upper Abdomen: Abdomen: Visualized upper abdominal structures are within normal limits. Bones: No evidence of acute osseous abnormality. PAGE 1 Signed Report (CONTINUED) Name: [facility] 1960 Age/S: 61 / F [id number] Unit #: [id number] Loc: [place] [address] Phys: Zina Tate DO Acct: [id number] Dis Date: Status: REG CLI PHONE #: [phone] Exam Date: 09/13/2022 1446 FAX #: Reason: SOLITARY PULMONARY NODULE EXAMS: CPT: [id number] CT CHEST W/O CONTRAST [address]114 (Continued) IMPRESSION: Stable 3 mm noncalcified nodule in the right middle lobe. Lung Cancer Screening: Lung-RADS: Category 2. Benign Appearance or Behavior -- Nodules with a very low likelihood of becoming a clinically active cancer. Lung-RADS Modifier: None. Recommendation: Continue annual screening with low dose chest CT in 12 months. FO R INTERNAL CODING PURPOSES ONLY RESULT CODE: L2 FOLLOW UP: L12 at 1518 Reported and signed by: Juan Dawson M.D. CC: Zina Tate DO Technologist:BREANA LARSON CTDI: DLP: [email or web address] Date/Time: 09/13/2022 (1517) [email or web address] Orig Print D/T: S: 09/13/2022 (0598) PAGE 2 Signed Report - CT LD LUNG CA SCREENING 2022-01-19 11:15:00 [facility] 1960 Sex: F Name: COOPER CLAUDIO [facility] : 1960 Age/S: 61 / F [id number] [facility] [place] Unit #: [id number] Loc: [place] [address] Phys: Zina Tate DO Acct: [id number] Dis Date: Status: REG CLI PHONE #: [phone] Exam Date: 01/19/2022 1045 FAX #: Reason: NICOTINE DEPENDENCE BEAR EXAMS: CPT: [id number] CT LD LUNG CA SCREENING [address]24 EXAMINATION: - CT LD LUNG CA SCREENING COMPARISON: None HISTORY: Lung cancer screening, history of personal nicotine dependence, cigarette use LOCATION CODE: C3 TECHNIQUE: CT of the Chest without intravenous contrast, low-dose. 5 mm axial non-contrast enhanced axial images of the chest were obtained and reviewed in soft tissue, bone and lung windows. Coronal and sagittal reconstructed images were also provided for review. Low-dose technique was employed All CT scans are performed using dose optimization techniques as appropriate to a performed exam including one or more of the following: ?Automated exposure control ?Adjustment of the mA and/or kV according to patient size ?Use of iterative reconstruction technique FINDINGS: Areas of mild scar are present in both lungs. A 3 mm right upper lobe lung nodule is present on series 4 image 79. No other focal pulmonary nodules are identified. The central airways are patent. There is no mediastinal, axillary or supraclavicular adenopathy. Atheromatous plaquing is present in the vessels. The chest wall, lower neck and visualized upper abdominal structures are grossly normal. Mild degenerative disc changes are present in the spine IMPRESSION: Tiny noncalcified nodule in the right upper lobe of the lung without suspicious pulmonary lesion identified. The study has a lung RADS category of 2, with continued annual screening recommended FO R INTERNAL CODING PURPOSES ONLY RESULT CODE: L2 FOLLOW UP: L12 PAGE 1 Signed Report (CONTINUED) Name: COOPER CLAUDIO Addy : 1960 Age/S: 61 / F [id number] [facility] Unit #: [id number] Loc: [place] [address] Phys: Zina Tate DO Acct: [id number] Dis Date: Status: REG CLI PHONE #: [phone] Exam Date: 01/19/2022 1045 FAX #: Reason: [facility] EXAMS: CPT: [id number] CT LD LUNG CA SCREENING 46017 <Continued> at 1115 Reported and signed by: Hilary Jones M.D. CC: Zina Tate DO Technologist:Shilo Carvajal, RT,(R),(CT) CTDI: DLP: Trnscb Date/Time: 01/19/2022 (1899) [email or web address] Orig Print D/T: S: 01/19/2022 (0418) PAGE 2 Signed Report [facility] cancer DNA and occult blood screening [Presence] in [id number] 13:15:00* Test Item Value Reference Range Interpretation Comme nts cologuard result reportable (test code = cologuard result reportable) negative negative [facility] CenterP[facility] tests - AR 2.0 [id number] 00:00:00* Test Item Value Reference Range Interpretation Comme [facility] Cytology report of Cervical or vaginal smear or scraping Cyto stain (test code = 46961-8) sprcs Statement of adequacy [Interpretation] of Cervical or vaginal smear or scraping by Cyto stain (test code = 94378-3) [facility] Broadcast Producer who read Cyto sta in of Cervical or vaginal smear or scraping (test code = 14937-4) sprcs Microscopic observation [Pierre ntifier] in Specimen by Other stain (test code = 30031-0) . note: (test code = note:) papsmr Cytology report of Cervical or vaginal smear or scraping Cyto stain.thin prep (test code = 10142-9) iglpap Chlamydia trachomatis rRNA [Presence] in Cervix by DAYDAY with probe detection (test code = 47718-8) negative negative Neisseria gonorrhoeae rRNA [Presence] in Cervix by DAYDAY with probe detection (test code = 33992-8) negative negative [facility] PracticePap smear tests - FPAR 2.0 [id number] 00:00:00* Test Item Value Reference Range Interpretation Comme nts Cytology report of Cervical or vaginal smear or scraping Cyto stain (test code = 20065-8) sprcs Statement of adequacy [Interpretation] of Cervical or vaginal smear or scraping by Cyto stain (test code = 24190-2) [facility] Broad[facility] Producer who read Cyto sta in of Cervical or vaginal smear or scraping (test code = 81526-8) sprcs Microscopic observation [Pierre ntifier] in Specimen by Other stain (test code = 75921-6) . note: (test code = note:) papsmr Cytology report of Cervical or vaginal smear or scraping Cyto stain.thin prep (test code = 12405-4) iglpap Chlamydia trachomatis rRNA [Presence] in Cervix by DAYDAY with probe detection (test code = 87025-2) negative negative Neisseria gonorrhoeae rRNA [Presence] in Cervix by DAYDAY with probe detection (test code = 57661-3) negative negative [facility] PracticeHepatitis C virus Ab Signal/Cutoff in Serum or Plasma by Webmbbhqaha8643-21-82 00:00:00* Test Item Value Reference Range Interpretation Comme nts Hepatitis C virus Ab Signal/ Cutoff in Serum or Plasma by Immunoassay (test code = 75756-5) <0.1 0.0-0.9 [facility] PracticeHepatitis B virus surface Ag [Presence] in Serum or Plasma by Confirmatory gfusnc9188-96-40 00:00:00* Test Item Value Reference Range Interpretation Comme nts HBsAg screen (test code = HB sAg screen) negative negative [facility] PracticeReagin Ab [Units/volume] in Serum or Plasma by RPR 2021-12-16 00:00:00* Test Item Value Reference Range Interpretation Comme nts RPR (test code = RPR) non reactive non reactive [facility] PracticeHIV 1+2 Ab+HIV1 p24 Ag [Presence] in Serum or Plasma by Rfzgayjudbi2141-98-80 00:00:00* Test Item Value Reference Range Interpretation Comme nts HIV Ab/P24 Ag screen (test c ode = HIV Ab/P24 Ag screen) non reactive non reactive [facility] PracticeHepatitis C virus Ab Signal/Cutoff in Serum or Plasma by Sllajtsxapd5076-45-26 00:00:00* Test Item Value Reference Range Interpretation Comme nts Hepatitis C virus Ab Signal/ Cutoff in Serum or Plasma by Immunoassay (test code = 60722-4) <0.1 0.0-0.9 [facility] PracticeHepatitis B virus surface Ag [Presence] in Serum or Plasma by Confirmatory vytxvw1135-71-20 00:00:00* Test Item Value Reference Range Interpretation Comme nts HBsAg screen (test code = HB sAg screen) negative negative [facility] PracticeReagin Ab [Units/volume] in Serum or Plasma by RPR 2021-12-16 00:00:00* Test Item Value Reference Range Interpretation Comme nts RPR (test code = RPR) non reactive non reactive [facility] PracticeHIV 1+2 Ab+HIV1 p24 Ag [Presence] in Serum or Plasma by Lmfyeootwmd0049-03-53 00:00:00* Test Item Value Reference Range Interpretation Comme [facility] HIV Ab/P24 Ag screen (test c ode = HIV Ab/P24 Ag screen) non reactive non reactive [facility] Centerpre/post bronchodilator spirometry*2021-11-26 10:09:00* Test Item Value Reference Range Interpretation Comme [facility] PRE FEV1: (test code = PRE FEV1:) 1.44 (70%) POST FEV1: (test code = POST FEV1:) 1.72 (65%) FEV1: (test code = FEV1:) PRE FEF: (test code = PRE FEF:) 0.84 (35%) POST FEF: (test code = POST FEF:) 1.37 (57%) FEF: (test code = FEF:) RESTRICTION: (test code = RESTRICTION:) MILD (FVC 65-80% predicted) OBSTRUCTION: (test code = OBSTRUCTION:) MODERATE (FEV1 50-80 % of predicted) NOTES: (test code = NOTES:) [facility] CenterVITAMIN D, 25 [id number] 06:57:41* Test Item Value Reference Range Interpretation [facility] VITAMIN D, 25 OH (test code = 4958) 34 NG/ML SEE BELOW NOTE: 25-HYDR OXYVITAMIN D ASSAY INCLUDES 25-HYDROXYVITAMIN D2 AND D3. METHODOLOGY IS CHEMILUMINESCENT IMMUNOASSAY. INTERPRETIVE RANGES PEDIATRIC (<17 YEARS) . . . . . . . . . . . NG/ML 20-100ADULT: INSUFFICIENT . . . . . . . . . . . . . . NG/ML <20 SUBOPTIMAL . . . . . . . . . . . . . . . NG/ML 20-29 OPTIMAL . . . . . . . . . . . . . . . . . NG/ML 30-100 THYROID II PROFILE (TU,T4,FTI,TSH)2021-05-27 04:11:25* Test Item Value Reference Range Interpretation Comme [facility] T-UPTAKE (test code = 2817) 30.2 % 24.3-39.0 THYROX. BIND. CAPAC. (test code = 75376) 1.1 0.8-1.3 NOTE: THYROXINE BINDING CAPACITY IS INVERSELY RELATED TO T-UPTAKE,DECREASED WITH HYPERTHYROIDISM AND LOW THYROID BINDING GLOBULIN (TBG),INCREASED IN HYPOTHYROIDISM OR WITH HIGH TBG. T4 (THYROXINE) (test code = 2819) 8.8 UG/DL 4.5-10.5 CORRECTED T4 (FTI) (test code = 2820) 8.0 UG/DL 4.2-11.6 TSH, THIRD GENERATION (test code = 2821) 2.430 UIU/ML 0.400-4.100 UNLESS OTHERWISE INDICATED, ALL TESTING PERFORMED [facility] [employer] [address] [place] [id number] INTERNATIONAL FLIGHT ATTENDANT: NELLIE LOPEZ M.D. [place] NUMBER [id number] [facility] [place]. [id number] CT ANGIOGRAM [id number] 19:45:17No aneurysm or high-grade stenosis is present in the intracranial orcervical vesselsCT ANGIOGRAM NECK,CT ANGIOGRAM HEAD HISTORY: Female 59 years Neuro deficit(s), subacute COMPARISON: None TECHNIQUE:Routine contrast enhanced CTA of the head and neck followingadministration of 100 mL IV Omnipaque. Coronal and sagittal reformats weregenerated and reviewed. FINDINGS: CTA head: The PICA origin is visualized bilaterally. The basilar artery is normal incaliber. The superior cerebellar arteries are patent. The posteriorcerebral arteries are patent. origin of the left ELECTRICIAN ASSISTANT is noted. Nosizable right posterior communicating artery is identified. The distal cervical, petrous, cavernous and supraclinoid internal carotidartery segments are patent. Mild calcification in the carotid siphonsresultsin no significant luminal narrowing. The anterior and middlecerebral arteries are patent. An anterior communicating artery is present. CTA NECK: Classic 3 vessel arch branching anatomy is noted. Mild vascularcalcifications in the arch vessel origins result in no more than mildluminal narrowing. Theinnominate and subclavian arteries are patent. The common carotid arteries, carotid bulbs and cervical internal carotidarteries are widely patent. The vertebral arteries are patent from their subclavian origins through thevertebrobasilar junction. The left vertebral artery is slightly dominant. A subcentimeter calcified nodule is incidentally noted in the right lobe ofthe thyroid. [facility], Radiant Results Inft User - 01/27/2020 2:46 PM CDTCT ANGIOGRAM NECK,CT ANGIOGRAM HEADHISTORY: Female 59 yearsNeuro deficit(s), subacute COMPARISON: NoneTECHNIQUE: Routine contrast enhanced CTA of the head andneck followingadministration of 100 mL IV Omnipaque. Coronal and sagittal reformats weregenerated and reviewed.FINDINGS:CTA head:The PICA origin is visualized bilaterally. The basilar artery is normal incaliber. The superior cerebellar arteries are patent. The posteriorcerebral arteries are patent. origin of the left ELECTRICIAN ASSISTANT is noted. Nosizable right posterior communicating artery is identified.The distal cervical, petrous, cavernous and supraclinoid internal carotidartery segments are patent. Mild calcification in the carotid siphonsresults in no significant luminal narrowing. The anteriorand middlecerebral arteries are patent. An anterior communicating artery is present.CTA NECK:Classic 3 vessel arch branching anatomy is noted. Mild vascularcalcifications in the arch vessel origins result in no more than mildluminal narrowing. The innominate and subclavian arteries are patent.The co mmon carotid arteries, carotid bulbs and cervical internal carotidarteries are widely patent.The vertebral arteries are patent from their subclavian origins through thevertebrobasilar junction. The left vertebral artery is slightly dominant.A subcentimeter calcified nodule is incidentally noted in the right lobe ofthe thyroid.IMPRESSIONNo aneurysm or high-grade stenosis is present in the intracranial orcervical vesselsUnAscension Seton Medical Center AustinCT ANGIOGRAM [id number] 19:45:17No aneurysm or high-grade stenosis is present in the intracranial orcervical vesselsCT ANGIOGRAM NECK,CT ANGIOGRAM HEAD HISTORY: Female 59 years Neuro deficit(s), subacute COMPARISON: None TECHNIQUE: Routine contrast enhanced CTA of the head and neck followingadministration of 100 mL IV Omnipaque. Coronal and sagittal reformats weregenerated and reviewed. FINDINGS: CTA head: The PICA origin is visualized bilaterally. The basilar artery is normal incaliber. The superior cerebellar arteries are patent. The posteriorcerebral arteries are patent. origin of the left ELECTRICIAN ASSISTANT is noted. Nosizable right posterior communicating artery is identified. The distal cervical, petrous, cavernous and supraclinoid internal carotidartery segments are patent. Mild calcification in the carotid siphonsresultsin no significant luminal narrowing. The anterior and middlecerebral arteries are patent. An anterior communicating artery is present. CTA NECK: Classic 3 vessel arch branching anatomy is noted. Mildvascularcalcifications in the arch vessel origins result in no more than mildluminal narrowing. Theinnominate and subclavian arteries are patent. The common carotid arteries, carotid bulbs and cervical internal carotidarteries are widely patent. The vertebral arteries are patent from their subclavian origins through thevertebrobasilar junction. The left vertebral artery is slightly dominant. A subcentimeter calcified nodule is incidentally noted in the right lobe ofthe thyroid. [facility], Radiant Results Inft User - 01/27/2020 2:46 PM CDTCT ANGIOGRAM NECK,CT ANGIOGRAM HEADHISTORY: Female 59 yearsNeuro deficit(s), subacute COMPARISON: NoneTECHNIQUE: Routine contrast enhanced CTA of the head andneck followingadministration of 100 mL IV Omnipaque. Coronal and sagittal reformats weregenerated and reviewed.FINDINGS:CTA head:The PICA origin is visualized bilaterally. The basilar artery is normal incaliber. The superior cerebellar arteries are patent. The posteriorcerebral arteries are patent. origin of the left ELECTRICIAN ASSISTANT is noted. Nosizable right posterior communicating artery is identified.The distal cervical, petrous, cavernous and supraclinoid internal carotidartery segments are patent. Mild calcification in the carotid siphonsresults in no significant luminal narrowing. The anteriorand middlecerebral arteries are patent. An anterior communicating artery is present.CTA NECK:Classic 3 vessel arch branching anatomy is noted. Mild vascularcalcifications in the arch vessel origins result in no more than mildluminal narrowing. The innominate and subclavian arteries are patent.The co mmon carotid arteries, carotid bulbs and cervical internal carotidarteries are widely patent.The vertebral arteries are patent from their subclavian origins through thevertebrobasilar junction. The left vertebral artery is slightly dominant.A subcentimeter calcified nodule is incidentally noted in the right lobe ofthe thyroid.IMPRESSIONNo aneurysm or high-grade stenosis is present in the intracranial orcervical vesselsUnAscension Seton Medical Center AustinCT HEAD WO [id number] 19:39:07Normal CT headCT HEAD WO CONTRAST HISTORY: Female 59 years Neuro deficit(s), subacute COMPARISON: None TECHNIQUE: Routine CT head without contrast FINDINGS: The ventricles and cerebral sulci are normal in caliber and configuration.No hydrocephalus, midline shift or pathological extra axial fluidcollection is present. The basal cisterns are unremarkable. No acute intracranial hemorrhage or mass effect is present. The canales-whitematter differentiation is preserved. No parenchymal attenuation abnormalityis present. The calvarium and skull base are unremarkable. The mastoid air cells andvisualizedparanasal air sinuses are clear. [facility], Radiant Results Inft User - 01/27/2020 2:40 PM CDTCT HEAD WOCONTRASTHISTORY: Female 59 years Neuro deficit(s), subacute COMPARISON: NoneTECHNIQUE: Routine CT head without contrastFINDINGS:The ventricles and cerebral sulci are normal in caliber and configuration.No hydrocephalus, midline shift or pathological extra axial fluidcollection is present. The basalcisterns are unremarkable.No acute intracranial hemorrhage or mass effect is present. The canales-whitematter differentiation is preserved. No parenchymal attenuation abnormalityis present.The calvariumand skull base are unremarkable. The mastoid air cells andvisualized paranasal air sinuses are clear.IMPRESSIONNormal CT headUnOakBend Medical Center. METABOLIC PANEL (45483)2020-01-27 18:01:00* Test Item Value Reference Range Interpretation Comme nts NA (test code = 5420199377) 136 mmol/L 135-145 K (test code = 2389808373) 4.0 mmol/L 3.5-5 CL (test code = 5211855037) 98 mmol/L 98-108 CO2 TOTAL (test code = 0269428137) 30 mmol/L 23-31 AGAP (test code = 7461452979) 2-16 BUN (test code = 8524449646) 20 mg/dL 7-23 GLUCOSE (test code = 8842520770) 102 mg/dL 70-110 CREATININE (test code = 4482158558) 0.70 mg/dL 0.5-1.04 TOTAL BILI (test code = 2997394505) 0.6 mg/dL 0.1-1.1 CALCIUM (test code = 4767259520) 10.1 mg/dL 8.6-10.6 T PROTEIN (test code = 9448713521) 7.7 g/dL 6.3-8.2 ALBUMIN (test code = 5483247627) 4.6 g/dL 3.5-5 ALK PHOS (test code = 1255188219) 64 U/L 34-122 ALTv (test code = 1742-6) 53 U/L 5-35 H AST(SGOT) (test code = 1650716495) 45 U/L 13-40 H eGFR Calculation (Non-) (test code = 3834499456) mL/min/1.73m2 eGFR Calculation () (test code = 7694476210) mL/min/1.73m2 DOROTHY (test code = DOROTHY) Association of Glomerular Filtration Rate (GFR) and Staging of Kidney Disease* + --+ --+ ------+| GFR (mL/min/1.73 m2) ?| With Kidney Damage ?| ?Without Kidney Damage+ --------+ --------+ +| ?>90 ?| ?Stage one ?| ? Normal ?+ ---+ ---+ -------+| ?60-89 ?| ?Stage two ?| ? Decreased GFR ? + --+ --+ ------+| ?30-59 ?| ?Stage three ?| ? Stage three ? + --+ --+ ------+| ?15-29 ?| ?Stage four ? | ? Stage four ?+ ---+ ---+ -------+| ?<15 (or dialysis) ? ?| ?Stage five ? | ? Stage five ?+ ---+ ---+ -------+ *Each stage assumes the associated GFR level has been in effect for at least three months. ?Stages 1 to 5, with or without kidney disease, indicate chronic kidney disease. Notes: Determination of stages one and two (with eGFR >59mL/min/1.73 m2) requires estimation of kidney damage for at least three months as defined by structural or functional abnormalities of the kidney, manifested by either:Pathological abnormalities or Markers of kidney damage (including abnormalities in the composition of the blood or urine or abnormalities in imaging tests). Lab Interpretation (test code = 49825-0) Abnormal [facility] with Yronmixrmgxb2222-36-26 17:48:00* Test Item Value Reference Range Interpretation Comme nts WBC (test code = 6690-2) See_Comment [Automated [employer]] The system which generated this result transmitted reference range: 4.30 - 11.10 10*3/?L. The reference range was not used to interpret this result as normal/abnormal. RBC (test code = 789-8) See_Comment [Automated messa ge] The system which generated this result transmitted reference range: 3.93 - 5.25 10*6/?L. The reference range was not used to interpret this result as normal/abnormal. HGB (test code = 718-7) 15.2 g/dL 11.6-15 H HCT (test code = 4544-3) 43.7 % 35.7-45.2 MCV (test code = 787-2) 94.2 fL 80.6-95.5 MCH (test code = 785-6) 32.8 pg 25.9-32.8 MCHC (test code = 786-4) 34.8 g/dL 31.6-35.1 RDW-SD (test code = 97367-0) 42.1 fL 39-49.9 RDW-CV (test code = 788-0) 12.3 % 12-15.5 PLT (test code = 777-3) See_Comment [Automated [employer]] The system which generated this result transmitted reference range: 166 - 358 10*3/?L. The reference range was not used to interpret this result as normal/abnormal. MPV (test code = 31779-3) 9.7 fL 9.5-12.9 NRBC/100 WBC (test code = 6516108532) See_Comment [Automated [employer] ssage] The system which generated this result transmitted reference range: 0.0 - 10.0 /100 WBCs. The reference range was not used to interpret this result as normal/abnormal. NRBC x10^3 (test code = 7064789921) <0.01 See_Comment [Automated messa ge] The system which generated this result transmitted reference range: 10*3/?L. The reference range was not used to interpret this result as normal/abnormal. GRAN MAT (NEUT) % (test code = 770-8) 75.4 % IMM GRAN % (test code = 5795480492) 0.40 % LYMPH % (test code = 736-9) 16.3 % MONO % (test code = 5905-5) 6.1 % EOS % (test code = 713-8) 1.3 % BASO % (test code = 706-2) 0.5 % GRAN MAT x10^3(ANC) (test code = 9692097860) 7.28 10*3/uL 1.88-7.09 H IMM GRAN x10^3 (test code = 2741042129) 0.04 10*3/uL 0-0.06 LYMPH x10^3 (test code = 731-0) 1.57 10*3/uL 1.32-3.29 MONO x10^3 (test code = 742-7) 0.59 10*3/uL 0.33-0.92 EOS x10^3 (test code = 711-2) 0.13 10*3/uL 0.03-0.39 BASO x10^3 (test code = 704-7) 0.05 10*3/uL 0.01-0.07 Lab Interpretation (test code = 77294-4) Abnormal [facility] Notes Date/Time Note Provider Source 2022-01-12 16:19:00 [id number] /5pP6qtWHnj0jPYIzO/o8xJ5wDBiYb46496-79-48F13:19:0 [address] [address] PATIENT NAME: COOPER CLAUDIO ADMIT DATE: 01/12/22ACCOUNT NO: [id number] ROOM NO: AGE: 61 REPORT TYPE: eECHOCARDIOGRAM REPORT SEX: F ADMITTING PHYSICIAN: ATTENDING PHYSICIAN: Zina Tate DO *[facility]*[address] [place] [id number] Transthoracic Echocardiogram Patient: Lili Claudiotudy Date: 01/12/2022 BP: [id number] 1960 Age: 61 Height: 65 in / 165.1 cmAccession#: [id number] Gender: F Weight: 239.5 lb / 108.9 kgBMI/BSA: 39.9 kg/m 2 / 2.14 m 2 *Ordering Physician: * Zina Tate *Interpreting Physician: * Dian Kaplan MD*Wet Suit Gluer: * Lilian Lange Indications: Other Forms of Dyspnea. Study data: Transthoracic echocardiogram. Procedure: Transthoracicechocardiography was performed. Image quality was adequate. Exncarlf5K, complete spectral Doppler, and color Doppler. Location: Echolaboratory. Patient status: Outpatient. Study status: Routine. Findings Left ventricle: The cavity size is normal. Wall thickness is normal.Systolic function is normal. The estimated ejection fraction is 55-60%.Wall motion is normal; there are no regional wall motion abnormalities.Doppler parameters are consistent with abnormal left ventricularrelaxation (grade 1 diastolic dysfunction).Right ventricle: The cavity size is normal. Systolic function is PATIENT NAME: COOPER CLAUDIO normal.Left atrium: The atrium is normal in size.Right atrium: The atrium is normal in size.Aorta: Aortic root: The aortic root is normal in size.Aortic valve: The valve is trileaflet. The leaflets are mildlycalcified. The findings are consistent with mild stenosis. There isno regurgitation.Mitral valve: The valve is structurally normal. There is noevidence of stenosis. There is trivial regurgitation.Tricuspid valve: The valve is structurally normal. There is mildregurgitation.Pulmonic valve: Not well visualized. There is physiologicregurgitation.Pericardium: There is no pericardial effusion.Pulmonary arteries:Not well visualized.Systemic veins:Inferior vena cava: The vessel is normal in size. Measurements Left ventricle Value Ref EMY, LAX 5.1 cm 3.8 - 5.2 ESD, LAX 3.6 cm 2.2 - 3.5 ESD/bsa, LAX 1.7 cm/m 2 1.3 - 2.1 FS, LAX 29 % 27 - 45 PW, ED 0.9 cm 0.6 - 0.9 IVS/PW, ED 1.02 --------- EF 56 % 54 - 74 IVRT 108 ms --------- LVOT Value Ref Diam, S 2.07 cm --------- Area 3.4 cm 2 --------- Peak michoacano, S 1.26 m/sec --------- Mean michoacano, S 0.93 m/sec --------- VTI, S 24.2 cm --------- Peak grad, S 6 mm Hg --------- Mean grad, S 4 mm Hg --------- SV 82 ml --------- SV/bsa 38 ml/m 2 --------- Ventricular septum Value Ref IVS, ED 0.9 cm 0.6 - 0.9 Right ventricle Value Ref TAPSE, MM 2.1 cm 1.7 - 3.1 Pressure, S 35 mm Hg --------- Left atrium Value Ref Vol/bsa, ES, 1-p A4C 13 ml/m 2 11 - 40 Vol/bsa, ES, A/L 14 ml/m 2 16 - 34 AP dim, ES MM 3.3 cm 2.7 - 3.8 PATIENT NAME: COOPER CLAUDIO LA/Ao root ratio, MM 1.13 --------- Aortic valve Value Ref Leaflet sep, MM 1.85 cm --------- Peak v, S 1.89 m/sec --------- Mean v, S 1.32 m/sec --------- VTI, S 35.4 cm --------- Mean grad, S 7.7 mm Hg --------- Peak grad, S 14.3 mm Hg --------- LVOT/AV, VTI ratio 0.68 --------- GRANT, VTI 2.30 cm 2 --------- LVOT/AV, Vpeak ratio 0.67 --------- GRANT, Vmax 2.25 cm 2 --------- Mitral valve Value Ref Peak E 0.88 m/sec --------- Peak A 1.02 m/sec --------- Decel time 246 ms --------- PHT 99 ms --------- Peak grad, D 3.1 mm Hg --------- Peak E/A ratio 0.86 --------- MVA, PHT 2.2 cm 2 --------- Tricuspid valve Value Ref TR peak v 2.74 m/sec <=2.8 Peak RV-RA grad, S 30 mm Hg --------- Aortic root Value Ref Root diam, ED MM 2.94 cm --------- Pulmonary artery Value Ref Pressure, S 30.0 mm Hg --------- Systemic veins Value Ref Estimated CVP 5 mm Hg --------- Pulmonary veins Value Ref A rev duration 103 ms --------- Conclusions Summary: 1. Left ventricle: The cavity size is normal. Wall thickness is normal. Systolic function is normal. The estimated ejection fraction is 55-60%. Wall motion is normal; there are no regional wall motion abnormalities. Doppler parameters are consistent with abnormal left ventricular relaxation (grade 1 diastolic dysfunction).2. Right ventricle: The RV pressure during systole by Doppler is 35 mm Hg.3. Aortic valve: The findings are consistent with mild stenosis. The mean systolic gradient is 7.7 mm Hg. The peak systolic gradient is 14.3 mm Hg. PATIENT NAME: COOPER CLAUDIO Prepared and electronically signed by Dian Kaplan MD01/12/2022 16:19 at 1619 PATIENT NAME: COOPER CLAUDIO :19:0 0.[id number] for patient ctjgEFDPBMFRGSVCZY8615-26-20L09:19:47 [facility]"
[2023-08-09 10:36] LABS: Absolute Eosinophils 0.1 K/uL (0-0.5); Absolute Lymphocytes (CBC) 1.6 K/uL (0.7-4.9); Basophils % 0.4 % (0-1.3); Hematocrit 35.4 % (36.0-45.0); Hemoglobin 12.3 g/dL (12.0-15.0); Lymphocytes % 21.8 % (15.3-44.8); MCV 95.3 fL (80-100); MPV 7.7 fL (7.6-11.3); Platelets 197 thou/uL (152-406); RBC Red Blood Cell Count 3.71 M/uL (3.86-4.86)
[2023-08-09 10:37] LABS: Protime INR 1.09
[2023-08-09 10:53] LABS: Anion Gap 6.6 mEq/L (5.0-15.0); Potassium 3.6 mEq/L (3.5-5.1); Troponin High Sensitivity 4.8 pg/mL (<58.9)
--- NOTE | 2023-08-09 11:12 | RAD REPORT ---
EXAM DESCRIPTION: RAD - Chest Single View - 08/09/2023 10:38 am CLINICAL HISTORY: CHEST PAIN COMPARISON: CHEST PA AND LAT 2 VIEW dated 04/02/2010; ABDOMEN ACUTE SERIES dated 01/19/2007 FINDINGS: Lines: None. Lungs: No evidence of edema or pneumonia. Pleural: No significant pleural effusions or pneumothorax. Cardiac: Mild enlarged cardiopericardial silhouette may be due to portable technique. Mediastinum: Within normal limits. Bones: No acute fractures. Other: None IMPRESSION: No acute cardiopulmonary disease.
--- NOTE | 2023-08-09 11:18 | RAD REPORT ---
EXAM DESCRIPTION: CT - Chest For Pe Angio - 08/09/2023 11:07 am CLINICAL HISTORY: CHEST PAIN COMPARISON: No comparisons TECHNIQUE: Dynamically enhanced axial 3 mm thick images of the chest were obtained during administra tion of <100> mL Isovue 370 IV contrast. Coronal and oblique reconstruction images were generated and reviewed. Exam utilizes a protocol for optimal evaluation of pulmonary arterial tree. Maximum intensity projections 3D imaging was utilized All CT scans are performed using dose optimization technique as appropriate and may include automated exposure control or mA/KV adjustment according to patient size. FINDINGS: Chest Wall: No suspicious thyroid nodules or pathologic lymphadenopathy. Lungs: No acute abnormality. Pleura: No significant effusions or pneumothorax. Mediastinum/inge: Prominent hilar lymph nodes which are likely reactive. Pulmonary arteries/Aorta: No filling defect identified. No aortic aneurysm. Heart: No significant pericardial effusion. Normal heart size. Upper abdomen: No acute abnormality.Partially imaged hepatomegaly. Possible splenomegaly as well but incompletely imaged. Bones: No acute abnormality. IMPRESSION: Negative for pulmonary embolism. No acute findings in the chest.
--- NOTE | 2023-08-09 12:03 | ER ---
Nurse's Notes [facility] Name: Nidhi Claudio Age: 62 yrs Sex: Female : 1960 Arrival Date: 08/09/2023 Time: 09:42 Bed 15 Private MD: Bladimir Morales Diagnosis: Chest pain, unspecified Presentation: 08/08 09:55 Chief complaint: Patient states: Sharp, stabbing left sided chest pain that started at ph 1 am, radiates to back, worse w/ deep breathing, denies N/V, SOB or dizziness. Coronavirus screen: Vaccine status: Patient reports receiving the 2nd dose of the covid vaccine. Ebola Screen: No symptoms or risks identified at this time. Initial Sepsis Screen: Does the patient meet any 2 criteria? No. Patient's initial sepsis screen is negative. Does the patient have a suspected source of infection? No. Patient's initial sepsis screen is negative. Risk Assessment: Do you want to hurt yourself or someone else? Patient reports no desire to harm self or others. Onset of symptoms was August 09, 2023. 09:55 Method Of Arrival: Ambulatory ph 09:55 Acuity: ENEIDA 2 ph Triage Assessment: 09:58 General: Appears in no apparent distress. comfortable, well groomed, Behavior is calm, ph cooperative, appropriate for age, Denies fever, feeling ill. Pain: Complains of pain in anterior aspect of left upper chest Pain radiates to back. Cardiovascular: Reports chest pain. Historical: - Allergies: 09:57 atorvastatin; ph - Home Meds: 09:57 levothyroxine 150 mcg tablet 1 tab daily [Active]; losartan 25 mg oral tablet 1 tab ph daily [Active]; - PMHx: 09:57 Hypothyroidism; Hypertensive disorder; ph - Immunization history:: Adult Immunizations unknown, Client reports receiving the 2nd dose of the Covid vaccine, Pneumococcal vaccine is up to date, Flu vaccine is not up to date. - Family history:: not pertinent. - Social history:: Smoking status: Patient denies any tobacco usage or history of. - Hospitalizations: : No recent hospitalization is reported. Screenin:49 [facility] ED Fall Risk Assessment (Adult) History of falling in the last 3 months, mb9 including since admission No falls in past 3 months (0 pts) Confusion or Disorientation No (0 pts) Intoxicated or Sedated No (0 pts) Impaired Gait No (0 pts) Mobility Assist Device Used No (0 pt) Altered Elimination No (0 pt) Score/Fall Risk Level 0 - 2 = Low Risk Oriented to surroundings, Maintained a safe environment, Educated pt \T\ family on fall prevention, incl call for assistance when getting out of bed. Abuse screen: Denies threats or abuse. Nutritional screening: No deficits noted. Tuberculosis screening: No symptoms or risk factors identified. Assessment: 09:59 General: Appears in no apparent distress. comfortable, well groomed, Behavior is calm, ph cooperative, appropriate for age. Pain: Complains of pain in anterior aspect of left upper chest Pain radiates to back Pain began 0100 this morning. Neuro: Level of Consciousness is awake, alert, obeys commands, Oriented to person, place, time, situation. Cardiovascular: Denies fatigue, lightheadedness, nausea, palpitations, shortness of breath. Respiratory: Airway is patent Respiratory effort is even, unlabored, Respiratory pattern is regular, symmetrical. GI: No signs and/or symptoms were reported involving the gastrointestinal system. Derm: Skin is pink, warm \T\ dry. Musculoskeletal: Circulation, motion, and sensation intact. Range of motion: intact in all extremities. 11:47 Reassessment: Patient appears in no apparent distress at this time. Patient and/or ph family updated on plan of care and expected duration. Pain level reassessed. Patient is alert, oriented x 3, equal unlabored respirations, skin warm/dry/pink. 13:06 Reassessment: Patient appears in no apparent distress at this time. Patient and/or ph family updated on plan of care and expected duration. Pain level reassessed. Patient is alert, oriented x 3, equal unlabored respirations, skin warm/dry/pink. Vital Signs: 09:55 BP 152 / 101; Pulse 87; Resp 18; Temp 97.5; Pulse Ox 98% on R/A; Weight 111.13 kg; ph Height 5 ft. 6 in. ; 10:28 BP 146 / 75; Pulse 73; Resp 18; Pulse Ox 94% on R/A; ph 11:47 BP 142 / 72; Pulse 71; Resp 18; Pulse Ox 95% on R/A; ph 09:55 Body Mass Index 39.54 (111.13 kg, 167.64 cm) ED Course: 09:44 Patient arrived in ED. rg4 09:44 Bladimir Morales DO is Private Physician. rg4 09:46 Maikel Alston MD is Attending Physician. rn 09:47 Emelia Green, RN is Primary Nurse. ph 09:49 Arm band placed on. mb9 09:49 Placed in gown. Bed in low position. Call light in reach. Side rails up X 1. Client mb9 placed on continuous cardiac and pulse oximetry monitoring. NIBP monitoring applied. media monitor on. Door closed. Noise minimized. Warm blanket given. 09:49 EKG done, by ED staff, reviewed by Maikel Alston MD. mb9 09:57 Triage completed. ph 09:59 Patient maintains SpO2 saturation greater than 95% on room air. ph 10:28 Basic Metabolic Panel Sent. ph 10:28 CBC with Diff Sent. ph 10:28 NT PRO-BNP Sent. ph 10:28 PT-INR Sent. ph 10:28 Troponin HS Sent. ph 10:28 Initial lab(s) drawn, by in, sent to lab. Inserted saline lock: 22 gauge in right ph antecubital area, using aseptic technique. Blood collected. 10:39 XRAY Chest (1 view) In Process Unspecified. EDMS 11:09 CT Chest For PE Angio In Process Unspecified. EDMS 12:03 Ashley Peterson MD is Hospitalizing Provider. rn 13:06 No provider procedures requiring assistance completed. Patient admitted, IV remains in ph place. Administered Medications: 13:35 Drug: Aspirin PO Chewable Tablet 324 mg PO once; 81 mg tablets x 4 Route: PO; ph Medication: 09:50 VIS not applicable for this client. mb9 Outcome: 12:03 Decision to Hospitalize by Provider. rn 15:24 Patient left the ED. ph Signatures: Dispatcher [employer] EDMS Maikel Alston MD MD rn Hall, Patricia, RN RN ph Garcia, Rubi [facility] Kenisha Castro RN RN mb9
--- NOTE | 2023-08-09 12:03 | EDPHYS ---
Physician Documentation [facility] Name: Nidhi Claudio Age: 62 yrs Sex: Female : 1960 Arrival Date: 08/09/2023 Time: 09:42 Bed 15 Private MD: Bladimir Morales ED Physician Maikel Alston HPI: 08/08 09:55 This 62 yrs old Female presents to ER via Unassigned with complaints of Chest Pain. rn 09:55 The patient or guardian reports chest pain that is located primarily in the anterior rn chest wall, left. Onset: this morning. The pain radiates to the left arm. Associated signs and symptoms: Pertinent positives: None. lower extremity swelling, Pertinent negatives: cough, diaphoresis, dizziness, headache, lightheadedness, palpitations, recent travel, shortness of breath, syncope, vomiting. The chest pain is described as dull, stabbing. Duration: The patient or guardian reports multiple episodes, that are intermittent. Modifying factors: The symptoms are alleviated by nothing. the symptoms are aggravated by deep breath, palpation of area. Severity of pain: At its worst the pain was moderate in the emergency department the pain is unchanged. The patient has not experienced similar symptoms in the past. Patient reports left anterior chest pain that radiates to the left arm. Left arm pain has been present for approximately a week but chest pain began this morning. States it feels like a krissy is being poked into her left anterior chest and radiates to the back straight through. No cardiac problems in the past. No known stroke. Does not take any blood thinners. No trauma. No cough or shortness of breath. Is on diuretic for lower extremity swelling and reports both legs equally swollen this morning. No history of DVT or PE. Historical: - Allergies: 09:57 atorvastatin; ph - Home Meds: 09:57 levothyroxine 150 mcg tablet 1 tab daily [Active]; losartan 25 mg oral tablet 1 tab ph daily [Active]; - PMHx: 09:57 Hypothyroidism; Hypertensive disorder; ph - Immunization history:: Adult Immunizations unknown, Client reports receiving the 2nd dose of the Covid vaccine, Pneumococcal vaccine is up to date, Flu vaccine is not up to date. - Family history:: not pertinent. - Social history:: Smoking status: Patient denies any tobacco usage or history of. - Hospitalizations: : No recent hospitalization is reported. ROS: 09:55 Constitutional: Negative for fever, chills, and weight loss, Cardiovascular: Positive rn for chest pain Respiratory: Negative for shortness of breath, cough, wheezing, and pleuritic chest pain, Abdomen/GI: Negative for abdominal pain, nausea, vomiting, diarrhea, and constipation, MS/Extremity: Negative for injury and deformity, Skin: Negative for injury, rash, and discoloration, Neuro: Negative for headache, weakness, numbness, tingling, and seizure, Exam: 10:09 Constitutional: This is a well developed, well nourished patient who is awake, alert, rn and in no acute distress. Chest/axilla: Normal chest wall appearance and motion. Mild tenderness left anterior chest wall Cardiovascular: Regular rate and rhythm. No pulse deficits. Respiratory: No increased work of breathing, no retractions or nasal flaring. Abdomen/GI: Soft, nontender MS/ Extremity: Pulses equal, no cyanosis. 1+ edema bilateral lower extremities with equal circumference Neuro: Awake and alert, GCS 15 12:43 ECG was reviewed by the Attending Physician. rn Vital Signs: 09:55 BP 152 / 101; Pulse 87; Resp 18; Temp 97.5; Pulse Ox 98% on R/A; Weight 111.13 kg; ph Height 5 ft. 6 in. ; 10:28 BP 146 / 75; Pulse 73; Resp 18; Pulse Ox 94% on R/A; ph 11:47 BP 142 / 72; Pulse 71; Resp 18; Pulse Ox 95% on R/A; ph 09:55 Body Mass Index 39.54 (111.13 kg, 167.64 cm) ph MDM: 09:46 Patient medically screened. rn 12:00 Differential diagnosis: acute myocardial infarction, acute pericarditis, coronary rn artery disease chest wall pain, costochondritis, esophagitis, gastritis, gastroesophageal reflux disease (GERD), pleurisy, pneumonia, pneumothorax, pulmonary embolus, stable angina. HEART Score:. Data reviewed: vital signs, nurses notes, lab test result(s). 12:02 Counseling: I had a detailed discussion with the patient and/or guardian regarding the rn historical points, exam findings, and any diagnostic results supporting the discharge/admit diagnosis, lab results, radiology results, the need for further work-up and treatment in the hospital. Response to treatment: There is no appreciated change of the patient's symptoms at this time, and as a result, I will admit patient. ED course: Troponin negative, ECG shows anterior T wave inversions. No clear etiology otherwise for her chest pain. CT PE negative. Will admit to hospitalist with cardiology consultation. Aspirin given in ER. Patient states has never had cardiac workup.. 08/08 09:53 Order name: Basic Metabolic Panel; Complete Time: 11: rn 08/08 09:53 Order name: CBC with Diff; Complete Time: 08/08 09:53 Order name: NT PRO-BNP; Complete Time: : rn 08/08 09:53 Order name: PT-INR; Complete Time: 08/08 09:53 Order name: Troponin HS; Complete Time: : rn 08/08 14:00 Order name: Basic Metabolic Panel EDMS 08/08 14:00 Order name: Basic Metabolic Panel EDMS 08/08 14:00 Order name: CBC with Automated Diff EDMS 08/08 14:00 Order name: CBC with Automated Diff EDMS 08/08 14:00 Order name: Lipid Profile EDMS 08/08 14:00 Order name: Lipid Profile EDMS / 14:00 Order name: Troponin High Sensitivity EDMS 08/08 14:00 Order name: Troponin High Sensitivity EDMS 08/08 14:00 Order name: Troponin High Sensitivity EDMS / 09:53 Order name: XRAY Chest (1 view); Complete Time: 11: rn 08/08 09:53 Order name: CT Chest For PE Angio; Complete Time: : rn 08/08 14:00 Order name: Echo with Doppler EDMS 08/08 09:53 Order name: EKG; Complete Time: 09:53 rn 08/08 14:00 Order name: CONS Physician Consult EDMS 08/08 09:53 Order name: Cardiac monitoring; Complete Time: : rn 08/08 09:53 Order name: EKG - Nurse/Tech; Complete Time: : rn 08/08 09:53 Order name: IV Saline Lock; Complete Time: 10:08/08 09:53 Order name: Labs collected and sent; Complete Time: :08/08 09:53 Order name: O2 Per Protocol; Complete Time: :59 rn 08/08 09:53 Order name: O2 Sat Monitoring; Complete Time: :59 rn EC:43 Rate is 82 beats/min. Rhythm is regular. QRS [place] is Normal. [place] interval is normal. QRS rn interval is normal. QT interval is normal. No Q waves. T waves are Inverted in leads V1, V2, V3. No ST changes noted. Clinical impression: NSR w/ Non-specific ST/T Changes. Interpreted by me. Reviewed by me. Administered Medications: 13:35 Drug: Aspirin PO Chewable Tablet 324 mg PO once; 81 mg tablets x 4 Route: PO; ph Disposition Summary: 08/09/23 12:03 Hospitalization Ordered Notes: Hospitalization Status: Observation rn Provider: Ashley Peterson rn Location: Telemetry/MedSurg (observation) rn Condition: Stable rn Problem: new rn Symptoms: are unchanged rn Bed/Room Type: Standard rn Room Assignment: [facility](08/09/23 14:04) bd Diagnosis - Chest pain, unspecified rn Forms: - Medication Reconciliation Form rn - SBAR form rn - Leadership Thank You Letter rn Signatures: Dispatcher [employer] EDMS Rosio Begum Roman, MD MD rn GreenEmelia RN RN ph Corrections: (The following items were deleted from the chart) 14:00 14:00 Troponin High Sensitivity ordered. EDOH EDMS 14:04 12:03 rn bd
[2023-08-09] MEDS ORDERED: ASPIRIN 81 MG CHEWABLE TABLET ONE (13:31)
[2023-08-09] MEDS ORDERED: ALPRAZOLAM 0.25 MG TABLET PO PRN (13:54)
--- NOTE | 2023-08-09 14:06 | P.HP ---
Certification for Inpatient Patient admitted to: Observation With expected LOS: <2 Midnights Patient will require the following post-hospital care: None Practitioner: I am a practitioner with admitting privileges, knowledge of patient current condition, hospital course, and medical plan of care. Services: Services provided to patient in accordance with Admission requirements found in Title 42 Section 412.3 of the Code of Federal Regulations Patient History Date of Service: 08/09/23 Reason for admission: Chest pain rule out acute coronary syndrome History of Present Illness: Patient 62-year-old female who came to the hospital with chest pain. Patient had chest pain which started around 1:00 in the morning. With stabbing pain from the chest to the lower back. Patient stated it was sharp. There was no diaphoresis but there was some shortness of breath. Patient was concerned that she was going to see her PCP. However, her PCP advised her to come into the emergency room. In the emergency room patient had EKG with no significant abnormalities except for some T wave inversions in the anterior leads. Patient CT PE protocol was negative. Patient will be admitted to the hospital for further workup. Allergies aspirin Adverse Reaction (Verified 02/17/12 20:01) STOMACH BLEEDING - Past Medical/Surgical History -: Hypertension -: Cholecystectomy -: Bilateral tubal ligation -: ERCP with stent placement - Family History Father Medical History: Heart disease - Social History Smoking Status: Former smoker Alcohol use: No CD- Drugs: No Review of Systems 10-point ROS is otherwise unremarkable Physical Examination - Vital Signs Temperature: 98 F (reviewed) - Physical Exam General: Alert, In no apparent distress, Oriented x3 HEENT: Atraumatic, PERRLA, Mucous membr. moist/pink, EOMI, Sclerae nonicteric Neck: Supple, 2+ carotid pulse no bruit, No LAD, Without JVD or thyroid abnormality Respiratory: Clear to auscultation bilaterally, Normal air movement Cardiovascular: Regular rate/rhythm, Normal S1 S2 Gastrointestinal: Normal bowel sounds, Soft and benign, Non-distended, No tenderness Musculoskeletal: No clubbing, No swelling, No tenderness Integumentary: No rashes Neurological: Normal gait, Normal speech, Normal strength at 5/5 x4 extr, Normal tone, Sensation intact, Cranial nerves 3-12 intact, Normal affect Lymphatics: No axilla or inguinal lymphadenopathy - Studies Laboratory Data (last 24 hrs) 08/09/23 08/09/23 08/09/23 10:25 10:25 10:25 WBC 7.40 Hgb 12.3 Hct 35.4 L Plt Count 197 PT 12.0 INR 1.09 Sodium 140 Potassium 3.6 BUN 17 Creatinine 0.77 Glucose 126 H Assessment & Plan - Problems (Diagnosis) (1) Metabolic syndrome Current Visit: Yes Status: Acute (2) Chest pain, rule out acute myocardial infarction Current Visit: Yes Status: Acute (3) Hypertension Current Visit: Yes Status: Acute (4) Tobacco abuse Current Visit: Yes Status: Acute - Plan -High-sensitivity troponin -Cardiology consultation -Echocardiogram and stress test per cardiology recommendation -Repeat EKG -Work-up for other etiologies of cardiac chest pain if troponins remain negative -Lipid profile -Minister Helper regarding modifying risk for cardiac disease Discharge Plan: Home Plan to discharge in: 24 Hours - Advance Directives Does patient have a Living Will: No Does patient have a Durable POA for Healthcare: No - Code Status/Comfort Care Code Status Assessed: Yes Code Status: Full Code Critical Care: No Time Spent Managing PTS Care (In Minutes): 55
[2023-08-09 15:58] VITALS: BMI 40.3
[2023-08-09] MEDS ORDERED: INFLUENZA VACCINE (for 6+ mo) 0.5 ML DOSE IMVAC ONE (17:00)
--- NOTE | 2023-08-09 17:03 | EKG ---
Test Date: 2023-08-09 Test Time: 09:56:49 [employer]: MB MEASUREMENT RESULTS: Intervals: Rate: 82 MT: 166 QRSD: 82 QT: 354 QTc: 413 [place]: P: 69 MT: 166 QRS: 84 T: 76 INTERPRETIVE STATEMENTS: Normal sinus rhythm T wave abnormality, consider anterior ischemia Abnormal ECG Compared to ECG 04/02/2010 13:35:44 T-wave abnormality now present Possible ischemia now present Electronically Signed On 08-09-23 17:02:13 [employer]EMENT FINISHING SUPERVISOR by Arthur Dorsey
[2023-08-09] MEDS: METOPROLOL TAR 25 MG TAB PO SCH (21:00)
--- NOTE | 2023-08-09 21:09 | CON ---
Date of Consultation: 08/09/2023 Reason For Consultation: Chest pain. History Of Present Illness: 62-year-old female, history of hypertension, presented with chest pain. She said that something stabbing her from her shoulder all the way to her chest like a krissy. The darlene n is sharp and short-lived and it causes mild shortness of breath and goes away. No further chest pa in at the present time. The CT PE protocol was negative and there was no exertional chest pain. Past Medical History: Hypertension. Past Surgical History: Cholecystectomy, tubal ligation. Medications: Refer reconciliation sheet for detailed list. Allergies: ASPIRIN. Family History: No premature coronary artery disease or cancer. Social History: She does not smoke or drink. Does not use any drugs. Review of Systems: All systems reviewed are negative except mentioned in HPI. Physical Examination: Vital signs: Reviewed. Head and Neck: Pupils are equal, reactive to light. Intact eye movements. No JVD. No cervical lym phadenopathy. Neck is supple. Thyroid is not enlarged. Lungs: Clear to auscultation bilaterally. No rhonchi, rales, or crackles. No accessory muscle use. Heart: Regular rate and rhythm. No extra sounds. Abdomen: Soft, nontender. Bowel sounds positive. No organomegaly. No masses or hernia. No rigidi ty or rebound. Extremities: No edema, clubbing, or cyanosis. Intact pulses. Skin: No rash. Neurologic: Alert, awake, oriented x3. No acute focal deficits appreciated. Investigations: BUN is 17, creatinine 0.77. Troponin 4.8. Hemoglobin is 12.3. Assessment/recommendation: 1.Chest pain, atypical pain. First set of cardiac enzymes negative. CT of the chest to rule out pu lmonary embolism. No acute findings in the chest. Recommend monitoring with serial sets of cardiac enzymes, and if cardiac enzymes are negative by tomorrow, the patient can be released and she will fo llow up with me as outpatient for stress test. Recommend baby aspirin and beta mayo. 2.Hypertension. Blood pressure is controlled. Continue current management. SR/MODL Voice ID: [id number] Report ID: [id number]
--- NOTE | 2023-08-10 04:55 | P.DS ---
Admission Date: 08/09/23 Discharge Date: 08/10/23 Disposition: ROUTINE DISCHARGE Discharge Condition: GOOD Reason for Admission: Chest pain rule out acute coronary syndrome Brief History of Present Illness: 62-year-old female who came to the hospital with chest pain. Patient had chest pain which started around 1:00 in the morning. With stabbing pain from the chest to the lower back. Patient stated it was sharp. There was no diaphoresis but there was some shortness of breath. Patient was concerned that she was going to see her PCP. However, her PCP advised her to come into the emergency room. In the emergency room patient had EKG with no significant abnormalities except for some T wave inversions in the anterior leads. Patient CT PE protocol was negative. Patient will be admitted to the hospital for further workup. - Physical Exam General: Alert, In no apparent distress, Oriented x3 HEENT: Atraumatic, PERRLA, Mucous membr. moist/pink, EOMI, Sclerae nonicteric Neck: Supple, 2+ carotid pulse no bruit, No LAD, Without JVD or thyroid abnormality Respiratory: Clear to auscultation bilaterally, Normal air movement Cardiovascular: Regular rate/rhythm, Normal S1 S2 Gastrointestinal: Normal bowel sounds, Soft and benign, Non-distended, No tenderness Musculoskeletal: No clubbing, No swelling, No tenderness Integumentary: No rashes Neurological: Normal gait, Normal speech, Normal strength at 5/5 x4 extr, Normal tone, Sensation intact, Cranial nerves 3-12 intact, Normal affect Lymphatics: No axilla or inguinal lymphadenopathy Hospital Course: 62 year-old female patient presented with chest pain. Was noted to have chest pain, was evaluated by cardiology, serial negative troponins, stress test No evidence of stress-induced ischemia, Condition improved with as needed analgesics. Patient tolerating diet, stable for discharge to home with follow-up appointment with primary care physician. PROBLEM: Atypical chest pain rule out ND Serial negative troponins Stress test No evidence of stress-induced ischemia Continue home medicines as previously prescribed GOAL: Clear understanding of disease process Follow-up with cardiology 1 to 2-week Dr Dorsey Discharge medications metoprolol 25 twice daily Losartan 50 mg twice daily Potassium 20 mg twice daily Potassium 10 mg twice daily Aldactone 25 mg daily First set of cardiac enzymes negative. CT of the chest to rule out pulmonary embolism. No acute findings in the chest. Recommend monitoring with serial sets of cardiac enzymes, and if cardiac enzymes are negative by tomorrow, the patient can be released and she will follow up with me as outpatient. Recommend baby aspirin and beta mayo. 2. Hypertension. Blood pressure is controlled. Continue current management. 08/09 Echocardiogram reduced ejection fraction 25 to 30% tricuspid regurgitation, diastolic dysfunction, INSTRUCTIONS: Physician Discharge Instructions: -Follow-up with PCP in 1 to 2 weeks -Please call Dr. Peterson at [phone] if any questions regarding hospital stay -Please call nursing station at [phone] if any nursing or medication questions -Return to the emergency room if symptoms worsen Diet: ADA, low sodium Activity: Fall precautions Vital Signs/Physical Exam: Temp Pulse Resp BP Pulse Ox 97.5 F 76 16 140/88 95 08/10/23 04:54 08/10/23 04:54 08/10/23 04:54 08/10/23 04:54 08/10/23 04:54 Laboratory Data at Discharge: WBC 7.40 thou/uL (4.3-10.9) 08/09/23 10:25 Hgb 12.3 g/dL (12.0-15.0) 08/09/23 10:25 Hct 35.4 % (36.0-45.0) L 08/09/23 10:25 Plt Count 197 thou/uL (152-406) 08/09/23 10:25 PT 12.0 SECONDS (9.5-12.5) 08/09/23 10:25 INR 1.09 08/09/23 10:25 Sodium 140 mEq/L (136-145) 08/09/23 10:25 Potassium 3.6 mEq/L (3.5-5.1) 08/09/23 10:25 BUN 17 mg/dL (7-18) 08/09/23 10:25 Creatinine 0.77 mg/dL (0.55-1.02) 08/09/23 10:25 Glucose 126 mg/dL (74-106) H 08/09/23 10:25 Home Medications: Levothyroxine [Synthroid*] 150 mcg PO [id number] 08/09/23 Furosemide [Lasix] 20 mg PO BIDL #60 tab 08/10/23 Losartan Potassium 50 mg PO BID #60 tab 08/10/23 Metoprolol Tartrate [Lopressor*] 25 mg PO BID #60 tab 08/10/23 Potassium Chloride 10 meq PO BID #60 tab 08/10/23 Spironolactone [Aldactone] 25 mg PO DAILY #30 tab 08/10/23 New Medications: Spironolactone [Aldactone] 25 mg PO DAILY #30 tab Furosemide [Lasix] 20 mg PO BIDL #60 tab Metoprolol Tartrate [Lopressor*] 25 mg PO BID #60 tab Losartan Potassium 50 mg PO BID #60 tab Potassium Chloride 10 meq PO BID #60 tab Physician Discharge Instructions: -DC IV and DC home -Follow-up with PCP in 1 to 2 weeks -Follow-up with Cardiology in 1 to 2 weeks -Please call Dr. Peterson at [phone] if any questions regarding hospital stay -Please call nursing station at [phone] if any nursing or medication questions -Return to the emergency room if symptoms worsen Diet: AHA Activity: Fall precautions Followup: Bladimir Morales DO [Primary Care Provider] - 1-2 Weeks Arthur Dorsey MD [ACTIVE - CAN ADMIT] - 1-2 Weeks Time spent managing pt's care (in minutes): 55
--- NOTE | 2023-08-10 04:55 | P.PN ---
Subjective Date of Service: 08/10/23 Chief Complaint: Chest pain rule out acute coronary syndrome Physical Examination - Vital Signs Temperature: 97.5 F Blood Pressure: 140/88 Pulse: 76 Respirations: 16 Pulse Ox (%): 95 - Studies Laboratory Data (last 24 hrs) 08/09/23 08/09/23 08/09/23 10:25 10:25 10:25 WBC 7.40 Hgb 12.3 Hct 35.4 L Plt Count 197 PT 12.0 INR 1.09 Sodium 140 Potassium 3.6 BUN 17 Creatinine 0.77 Glucose 126 H
[2023-08-10] MEDS: lisinopriL 10 MG TAB PO SCH (07:34)
[2023-08-10] MEDS: ENOXAPARIN 40 MG/0.4 ML SQ SCH (07:35)
[2023-08-10 07:41] LABS: Absolute Eosinophils 0.2 K/uL (0-0.5); Absolute Lymphocytes (CBC) 1.5 K/uL (0.7-4.9); Basophils % 0.3 % (0-1.3); Eosinophils % 1.8 % (0-4.4); Hematocrit 36.6 % (36.0-45.0); Hemoglobin 12.7 g/dL (12.0-15.0); Lymphocytes % 16.3 % (15.3-44.8); MCV 95.8 fL (80-100); MPV 7.7 fL (7.6-11.3); Platelets 233 thou/uL (152-406); RBC Red Blood Cell Count 3.82 M/uL (3.86-4.86)
[2023-08-10 07:55] LABS: Anion Gap 6.8 mEq/L (5.0-15.0); Potassium 3.8 mEq/L (3.5-5.1)
[2023-08-10 08:06] LABS: Troponin High Sensitivity 4.6 pg/mL (<58.9)
[2023-08-10] MEDS: ACETAMINOPHEN 500 MG TAB PO PRN (08:12)
[2023-08-10] MEDS ORDERED: ASPIRIN EC 81 MG TAB PO SCH (09:00)
--- NOTE | 2023-08-10 12:35 | ECHO ---
HEIGHT: 5 ft 6 in WEIGHT: 250 lb 0 oz DATE OF STUDY: 08/10/[address]: Ashley Peterson MD 2-DIMENSIONAL: YES M.MODE: YES DOPPLER: YES COLOR FLOW: YES TDS: YES PORTABLE: YES DEFINITY: BUBBLE STUDY: DIAGNOSIS: CHEST PAIN, RULE OUT ACUTE CORONARY SYNDROME CARDIAC HISTORY: CATHERIZATION: NO SURGERY: NO PROSTHETIC VALVE: NO PACEMAKER: NO MEASUREMENTS (cm) DIASTOLIC (NORMALS) SYSTOLIC (NORMALS) IVSd 1.2 (0.6-1.2) LA Diam 2.6 (1.9-4.0) LVEF 58% LVIDd 4.0 (3.5-5.7) LVIDs 2.8 (2.0-3.5) %FS 30% LVPWd 1.2 (0.6-1.2) Ao Diam 2.5 (2.0-3.7) 2 DIMENSIONAL ASSESSMENT: RIGHT ATRIUM: NORMAL LEFT ATRIUM: NORMAL RIGHT VENTRICLE: NORMAL LEFT VENTRICLE: MILD LEFT VENTRICULAR HYPERTROPHY TRICUSPID VALVE: TRACE MITRAL VALVE: TRACE MITRAL REGURGITATION PULMONIC VALVE: NORMAL AORTIC VALVE: NORMAL PERICARDIAL EFFUSION: TRACE AORTIC ROOT: NORMAL LEFT VENTRICULAR WALL MOTION: SEVERE GLOBAL HYPOKINESIS DOPPLER/COLOR FLOW: GRADE II DIASTOLIC DYSFUNCTION COMMENTS: 1. SEVERELY REDUCED LEFT VENTRICULAR SYSTOLIC FUNCTION, EJECTION FRACTION 25-30%, SEVERE GLOBAL HYPOKINESIS 2. GRADE II DIASTOLIC DYSFUNCTION 3. INFERIOR VENA CAVA DILATED, RIGHT ATRIAL PRESSURE 15-20 mmHg 4. TRACE TRICUSPID REGURGITATION, RIGHT VENTRICULAR SYSTOLIC PRESSURE 40-45 mmHg TECHNOLOGIST: LATANYA CHOE
[2023-08-10 12:51] VITALS: O2SAT 95
[2023-08-10] MEDS ORDERED: REGADENOSON 0.4 MG/5 ML SYR IV ONE (13:07)
--- NOTE | 2023-08-10 14:23 | RAD REPORT ---
EXAM DESCRIPTION: NM - Rest Stress Cardiac Imaging - 08/10/2023 1:37 pm CLINICAL HISTORY: Chest pain. COMPARISON: None. TECHNIQUE: The patient was administered 10.8 mCi of Tc 99m Sestamibi prior to resting SPECT imaging of the heart. The patient was then administered 28.7 mCi of Tc 99m Sestamibi following exercise or ph armacologic stress. Multiplanar SPECT images were reviewed. FINDINGS: Small to moderate area of diminished radiotracer activity involves anterior left ventricul ar myocardium on rest and stress sequences There is uniformity of radiotracer uptake involving the remainder of left ventricular myocardium on rest and stress images. The left ventricular ejection fraction equals 61% IMPRESSION: Small to moderate apparent fixed perfusion defect anterior left ventricular myocardium m ay indicate an infarction. Attenuation from overlying soft tissue is a another consideration. No evidence of stress-induced ischemia
[2023-08-10 16:44] VITALS: BP 141/89; TEMP 98.8
--- NOTE | 2023-08-11 06:41 | TREADPHA ---
DX: ACUTE CORONARY SYNDROME Date of Study: 08/10/2023 Ht: 5' 6 " Wt: 250 lb 0 oz Consulting Physician: SARAH MEDICATIONS: TYLENOL, XANAX, LOPRESSOR, LISONOPRIL HISTORY: HYPOTHYROID, HYPERTENSION, NON SMOKER, NON DRINKER, NO DRUGS PHYSICIAL EXAMINATION: RESTING B.P.: 152/78 RESTING H.R.: 81 RESTING EKG: SINUS RHYTHM PROTOCOL: PHARMACOLOGIC EXERCISE TIME: 3:30 B.P. AT PEAK STRESS: 129/71 IMPRESSION: LEXISCAN INJECTED. CARDIOLITE INJECTED - SEE NUCLEAR MEDICINE REPORT. SOME CHEST PAIN - SUBSIDED. NO ARRHYTHMIA, NO VENTRICULAR TACHYCARDIA, NO SUPRAVENTRICULAR TACHYCARDIA. HEADACHE PAIN FOUR OUT OF TEN ON PAIN SCALE.
== END 2023-08-10 16:27 | disposition home or self-care (01) ==
LOC: ER 09:42 → ERHOLD 13:54 → 2ND 14:05
PROVIDERS: ADMIT Hospitalist; ATTEND Hospitalist
DX: R07.9 Chest pain, unspecified (principal); E88.810 Metabolic syndrome; I10 Essential (primary) hypertension; Z87.891 Personal history of nicotine dependence
CPT/HCPCS: 93005; 93017; 93306; 85025 ×2; 80048 ×2; 36415; 85610; 80061; 84484 ×3; 83880; 71275; 71045; 78452; Q9967; J2785; A9500; 99285; G0378

== ENCOUNTER 2023-09-12 07:00 | Day surgery (SDC) | payer OTHER ==
[2023-09-01 15:37] LABS: Absolute Eosinophils 0.1 K/uL (0-0.5); Absolute Monocytes 0.7 K/uL (0.1-1.3); Absolute Neutrophil 5.3 K/uL (1.8-8.0); Basophils % 0.3 % (0-1.3); Eosinophils % 1.8 % (0-4.4); Hematocrit 38.8 % (36.0-45.0); Hemoglobin 13.1 g/dL (12.0-15.0); Lymphocytes % 24.9 % (15.3-44.8); MCH 32.7 pg (27.0-35.0); MCHC 33.8 g/dL (32.0-36.0); MCV 96.5 fL (80-100); MPV 8.1 fL (7.6-11.3); Monocytes % 8.5 % (3.3-12.3); Neutrophils % 64.5 % (41.7-73.7); Platelets 229 thou/uL (152-406); RBC Red Blood Cell Count 4.02 M/uL (3.86-4.86); Red Cell Distribution Width 13.6 % (12.1-15.2)
[2023-09-01 15:44] LABS: PT Prothrombin Time 11.3 SECONDS (9.5-12.5); PTT, Activated Partial Thromb 32.9 SECONDS (24.3-36.9); Protime INR 1.03
[2023-09-01 15:49] LABS: Anion Gap 7.4 mEq/L (5.0-15.0); Potassium 4.4 mEq/L (3.5-5.1)
--- NOTE | 2023-09-02 11:52 | EKG ---
Test Date: 2023-09-01 Test Time: 15:09:45 Motorcycle Subassembly Repairer: WILLIAN MEASUREMENT RESULTS: Intervals: Rate: 73 MI: 172 QRSD: 76 QT: 370 QTc: 407 [place]: P: 9 MI: 172 QRS: 74 T: 74 INTERPRETIVE STATEMENTS: Normal sinus rhythm Nonspecific T wave abnormality Abnormal ECG Compared to ECG 08/09/2023 09:56:49 Possible ischemia no longer present T-wave abnormality still present Electronically Signed On 09-02-23 11:49:18 CDT by Arthur Dorsey
[2023-09-12] MEDS: NA CHLORIDE 0.9% 500 ML ONE (07:12)
[2023-09-12] MEDS ORDERED: HEPA 1000U/500MLS 1,000 UNIT/500 ML BAG IV ONE (07:37)
[2023-09-12] MEDS ORDERED: HEPARIN 5000 UNIT/ML 1 ML VIAL ONE (07:38)
[2023-09-12] MEDS ORDERED: VERAPAMIL HCL 10 MG/4 ML VIAL IV ONE (07:38)
[2023-09-12] MEDS ORDERED: FENTANYL CITR 100 MCG/2 ML ONE (07:38)
[2023-09-12] MEDS ORDERED: LIDOCAINE 1% 20 ML MDV ONE (07:38)
[2023-09-12] MEDS ORDERED: MIDAZOLAM HCL 2 MG/2 ML INJ ONE (07:38)
[2023-09-12] MEDS ORDERED: ATROPINE SULF 1 MG/10 ML SYR IV ONE (07:38)
[2023-09-12] MEDS ORDERED: ASPIRIN 325 MG TAB ONE (07:39)
[2023-09-12] MEDS ORDERED: CLOPIDOGREL 75 MG TABLET ONE (07:39)
[2023-09-12] MEDS ORDERED: TICAGRELOR 90 MG TABLET PO ONE (07:39)
[2023-09-12] MEDS ORDERED: HEPARIN 10,000 UNIT/10 ML VIAL IV ONE (07:39)
[2023-09-12 08:29] VITALS: TEMP 97.2
--- NOTE | 2023-09-12 08:32 | OP ---
Date of Procedure: 09/12/2023 Surgeon: JOSE EDUARDO SMITH Procedures Performed: 1.Selective coronary angiogram. 2.Left heart catheterization. Indications: Severe systolic heart failure and unstable angina. Access: Right radial artery 6-Tunisian, closed with TR band. Complications: None. Bleeding: Less than 50 mL. Description Of Procedure: After risks, benefits, and alternatives were explained, the patient agreed to procedure and signed informed consent. [facility] prepped and draped in usual sterile fashion. Then, I accessed right radial artery using pedi atric micropuncture kit, placed a 6-Tunisian Slender sheath, and took 5-Tunisian tiger 4 catheter over a J-wire into the aortic root, engaged left main and then right coronary artery, took standard views, a nd then catheter was pushed over the wire into the LV, measured the LVEDP. Pullback did not record a ny gradient. Then, I removed the catheter and the sheath, placed TR band with good hemostasis. Findings: 1.Left main is normal. 2.LAD is normal. There is myocardial bridge in the mid segment and diagonal branches are normal. 3.Left circumflex, luminal irregularities, proximal 20%, mid to distal 20%. 4.RCA is moderate size, dominant with luminal irregularities. 5.Elevated LVEDP at 23 mmHg. 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 2.Elevated LVEDP. Recommendation: Medical management of heart failure. SR/MODL Voice ID: [id number] Report ID: [id number]
[2023-09-12 10:05] VITALS: BP 93/64; O2SAT 97
== END 2023-09-12 09:59 | disposition home or self-care (01) ==
LOC: CCL 07:00
PROVIDERS: ATTEND Internal Medicine
DX: I25.110 Atherosclerotic heart disease of native coronary artery with unstable angina pectoris (principal); I11.0 Hypertensive heart disease with heart failure; I50.20 Unspecified systolic (congestive) heart failure; Q24.5 Malformation of coronary vessels; E78.5 Hyperlipidemia, unspecified; E03.9 Hypothyroidism, unspecified; Z79.899 Other long term (current) drug therapy; Z88.8 Allergy status to other drugs, medicaments and biological substances; Z90.49 Acquired absence of other specified parts of digestive tract
CPT/HCPCS: 93005; 85025; 80048; 36415; 83721; 85610; 85730; 93458; 76937; C1893; Q9966; J1644; J2001; J7040; J0461; J2250; J3010